=== PATIENT | male | born 1970 | race Caucasian/White ===

== ENCOUNTER 2022-12-11 13:42 | Inpatient (IN) | payer OTHER, SELFPAY ==
[2022-12-11 14:00] VITALS: BP 131/77; PULSE 72; RESP 17; TEMP 36; O2SAT 96; BMI 27.6
--- NOTE | 2022-12-11 14:06 | ED_ITS ---
HPI - General Adult General Chief complaint: Extremity Problem <COURTNEY Myles - Last Filed: 12/11/22 14:24> Stated complaint: both hands swelling <COURTNEY Myles - Last Filed: 12/11/22 14:24> Time Seen by Provider: 12/12/22 00:12 <COURTNEY Myles - Last Filed: 12/11/22 14:24> Source: patient <Ida Gross MD - Last Filed: 12/12/22 01:43> Mode of arrival: ambulatory <Ida Gross MD - Last Filed: 12/12/22 01:43> Limitations: no limitations <Ida Gross MD - Last Filed: 12/12/22 01:43> History of Present Illness HPI narrative: Patient comes to the emergency room complaining of bilateral hand swelling for the last 2 months. Patient states that his hands have gradually become more swollen and painful. Patient denies fever or chills. Patient is known to be an IV drug user. Of note, patient was seen at [facility] on 12/10/2022, 2 days ago. Patient was evaluated in the emergency room. Patient was evaluated by Hand surgery who recommended antibiotics IV. A CT scan of the hands did not show any evidence of osteomyelitis, but there was extensive skin thickening and subcutaneous edema without discrete abscess. Patient is followed by infectious disease at [facility], while patient was in the emergency room, they started cefepime, vancomycin and Flagyl IV. However, patient left the same day against medical advice. Patient states that even with 1 dose of the above- mentioned antibiotics, his hand did improve. However, there still pretty painful. MRI which was done at [facility] on December 10 shows no evidence of osteomyelitis or focal fluid collection, 3rd MCP joint effusion. Dorsal soft tissue swelling is most significant at the level of the 3rd MCP joint <Ida Gross MD - Last Filed: 12/12/22 01:43> Related Data Home medications: Home Medications Medication Instructions Recorded Confirmed methadone 10 mg tablet 90 mg PO DAILY 12/11/22 12/11/22 <COURTNEY Myles - Last Filed: 12/11/22 14:24> Allergies/adverse reactions: Allergies Allergy/AdvReac Type Severity Reaction Status Date / Time No Known Allergies Allergy Unverified 07/19/20 15:55 [No Known Allergies*] <COURTNEY Myles - Last Filed: 12/11/22 14:24> Review of Systems Review of Systems: Constitutional : No Weight loss, No Fever, No Chills, No Night Sweats, No Fatigue, No Malaise ENT/Mouth : No Hearing loss, No Ear Pain, No Nasal Congestion, No Sinus Pain, No Hoarseness, No sore throat, No Rhinorrhea, No Swallowing Difficulty Eyes: No Eye Pain, No Swelling, No Redness, No Foreign Body, No Discharge, No Vision Changes Cardiovascular : No Chest Pain, No SOB, No Dyspnea on Exertion, No Orthopnea, No Edema, No Palpitations Respiratory : No Cough, No Sputum, No Wheezing, No Smoke Exposure, No Dyspnea Gastrointestinal : No Nausea, No Vomiting, No Diarrhea, No Constipation, No abdominal Pain, No Hematochezia, No Melena Genitourinary : no irregular bleeding, No Dysuria, No Urinary Frequency, No Hematuria, No Urinary Incontinence, No Urgency, No Flank Pain, No Urinary Flow Changes, No Hesitancy Musculoskeletal : No joint pain, No Myalgias, No Joint Swelling Skin : Complaining of bilateral hand cellulitis, pain and swelling Neuro : No Weakness, No Numbness, No Paresthesias, No Loss of Consciousness, No Dizziness, No Headache Psych : No Anxiety/Panic, No Depression, No SI/HI/AH/VH, No Social Issues, Heme/Lymph: No Bruising, No Bleeding,No Lymphadenopathy Endocrine : No Polyuria, No Polydipsia, No Temperature Intolerance <Ida Gross MD - Last Filed: 12/12/22 01:43> [facility] Past Medical History Medical History: Medical History Hepatitis C IV drug user <COURTNEY Myles - Last Filed: 12/11/22 14:24> Social History Social History: Social History Advance Directives: No Advance Directives Information Provided: Yes <COURTNEY Myles - Last Filed: 12/11/22 14:24> Physical Exam ED Vital Signs: Vital Signs - 24 hr 12/11/22 14:00 12/11/22 18:02 Temperature 96.8 F 98.8 F Pulse Rate 72 67 Respiratory Rate 17 18 Blood Pressure 131/77 135/66 Pulse Oximetry 96 95 Oxygen Delivery Method Room Air Room Air BMI result Body Mass Index 27.6 <COURTNEY Myles - Last Filed: 12/11/22 14:24> Vital Signs - 24 hr 12/11/22 14:00 12/11/22 18:02 Temperature 96.8 F 98.8 F Pulse Rate 72 67 Respiratory Rate 17 18 Blood Pressure 131/77 135/66 Pulse Oximetry 96 95 Oxygen Delivery Method Room Air Room Air BMI result Body Mass Index 27.6 <Ida Gross MD - Last Filed: 12/12/22 01:43> Const Other: Appearance: Alert. Oriented X3. No acute distress. Eyes: Pupils equal, round and reactive to light. ENT: Pharynx normal. Neck: Normal inspection. Neck supple. No lymph nodes noted. No crepitus CVS: Normal heart rate and rhythm. Pulses normal. Normal S1 and S2 Respiratory: No respiratory distress. Breath sounds normal. No Wheezing. No rales Abdomen: Soft and nontender. No rigidity. No distention. Skin: Skin warm and dry. Normal skin color by the exceptions of the dorsum of the hands, see extremities below.. Normal skin turgor. Extremities: No lower extremity edema. Bilateral hands have significant +2 pitting edema. Tenderness to palpation, eschars on the dorsum of the hands, mild erythema Neuro: Oriented X 3. No motor deficit. No sensory deficit. Moving all extrem ities. No slurred speech. CN 2 through 12 grossly intact Psych: calm, cooperative, normal affect <Ida Gross MD - Last Filed: 12/12/22 01:43> Course Course Course Narrative: This is an RME: Additional HPI, ROS, PE not included below will be deferred to primary provider. 52 year old male hx hep c, presents w/ swelling to b/l arms and hands for a few days patient left AMA from [facility] last night was getting treated for hand issue . Last used IV drugs 32 days ago. Reports numbness to both hands. On methadone. Denies fevers, chills, CP, sob PE - 2-3 + pititng edema to b/l hands w/ normal pulses. Plan- labs, blood cultures, lactic <COURTNEY Myles - Last Filed: 12/11/22 14:24> Medical Decision Making Medical Decision Making MDM Narrative: -patient's hands are significantly swollen, patient does have edema. -patient was evaluated by Hand surgery at [facility], IV antibiotics were recommended. Patient responded well to the combination of cefepime, metronidazole and vancomycin. -I discussed the patient and the records from [facility] with Dr. Durham, we will continue this 3 antibiotics. Patient to be admitted. Hand surgery consult in the morning. <Ida Gross MD - Last Filed: 12/12/22 01:43> Differential Diagnosis Differential Diagnoses: The differential diagnosis associated with the presentation includes (Cellulitis, abscess, wound infection) <Ida Gross MD - Last Filed: 12/12/22 01:43> Admission/Observation Consideration of admission/observation: Escalation of care including admission/observation considered (Patient will be continued on IV antibiotics as recommended for hand surgery and Infectious Disease from [facility]) <Ida Gross MD - Last Filed: 12/12/22 01:43> Consult Healthcare Provider Management of the patient was discussed with: Hospitalist <Ida Gross MD - Last Filed: 12/12/22 01:43> Lab Data [facility] Lab Attestation statement: I reviewed the patient's lab results. <Ida Gross MD - Last Filed: 12/12/22 01:43> Result Diagrams: 12/12/22 00:34 12/12/22 00:34 <COURTNEY Myles - Last Filed: 12/11/22 14:24> Labs: Lab Results 12/12/22 12/12/22 12/12/22 Range/Units 00:28 00:34 00:34 WBC 8.8 (4.8-10.8) X10*3/uL RBC 5.30 (4.60-5.80) X10*6/uL Hgb 14.6 (14.0-18.0) g/dl Hct 44.0 (42.0-52.0) % MCV 83.0 (80.0-98.0) fL MCH 27.5 (27.0-33.0) pg MCHC 33.2 (31.0-36.0) g/dl RDW 13.3 (11.0-16.0) % Plt Count 298 (160-400) X10*3/uL MPV 10.2 (9.4-12.4) fL Immature Gran % (Auto) 0.3 (0.0-0.4) % Neut % (Auto) 52.9 (45-73) % Lymph % (Auto) 31.7 (20-40) % [place] % (Auto) 7.8 (2-11) % Eos % (Auto) 6.7 H (0-4) % Baso % (Auto) 0.6 (0-2) % Lymph # (Auto) 2.8 (1.2-4.9) X10*3/uL [place] # (Auto) 0.7 (0.1-1.2) X10*3/uL Eos # (Auto) 0.6 H (0.0-0.4) X10*3/uL Baso # (Auto) 0.1 (0.0-0.2) X10*3/uL Abs Immat Gran (auto) 0.03 (0.00-0.03) X10*3/uL Absolute Neuts (auto) 4.6 (2.0-8.3) x10*3/uL Absolute Nucleated RBC 0.000 (0.0-0.012) X10*3/uL Nucleated RBC % (auto) 0.0 (0.0-0.2) /100WBC ESR (0-15) MM/HR Sodium Cancelled Potassium Cancelled Chloride Cancelled Carbon Dioxide Cancelled Anion Gap Cancelled BUN Cancelled Creatinine Cancelled Estim Creat Clear Calc Cancelled Estimated GFR Cancelled Random Glucose Cancelled Lactic Acid (0.5-2.0) mmol/L Calcium Cancelled Magnesium Cancelled Total Bilirubin Cancelled AST Cancelled ALT Cancelled Alkaline Phosphatase Cancelled C-Reactive Protein (< or = 0.50) mg/dL B-Natriuretic Peptide (<100) pg/mL Total Protein Cancelled Albumin Cancelled COVID-19 (ÓSCAR) Negative (Negative) COVID-19 Clin Com See Note 12/12/22 12/12/22 12/12/22 Range/Units 00:34 00:34 00:34 WBC (4.8-10.8) X10*3/uL RBC (4.60-5.80) X10*6/uL Hgb (14.0-18.0) g/dl Hct (42.0-52.0) % MCV (80.0-98.0) fL MCH (27.0-33.0) pg MCHC (31.0-36.0) g/dl RDW (11.0-16.0) % Plt Count (160-400) X10*3/uL MPV (9.4-12.4) fL Immature Gran % (Auto) (0.0-0.4) % Neut % (Auto) (45-73) % Lymph % (Auto) (20-40) % [place] % (Auto) (2-11) % Eos % (Auto) (0-4) % Baso % (Auto) (0-2) % Lymph # (Auto) (1.2-4.9) X10*3/uL [place] # (Auto) (0.1-1.2) X10*3/uL Eos # (Auto) (0.0-0.4) X10*3/uL Baso # (Auto) (0.0-0.2) X10*3/uL Abs Immat Gran (auto) (0.00-0.03) X10*3/uL Absolute Neuts (auto) (2.0-8.3) x10*3/uL Absolute Nucleated RBC (0.0-0.012) X10*3/uL Nucleated RBC % (auto) (0.0-0.2) /100WBC ESR 4 (0-15) MM/HR Sodium Potassium Chloride Carbon Dioxide Anion Gap BUN Creatinine Estim Creat Clear Calc Estimated GFR Random Glucose Lactic Acid 1.0 (0.5-2.0) mmol/L Calcium Magnesium Total Bilirubin AST ALT Alkaline Phosphatase C-Reactive Protein (< or = 0.50) mg/dL B-Natriuretic Peptide 21 (<100) pg/mL Total Protein Albumin COVID-19 (ÓSCAR) (Negative) COVID-19 Clin Com 12/12/22 Range/Units 00:34 WBC (4.8-10.8) X10*3/uL RBC (4.60-5.80) X10*6/uL Hgb (14.0-18.0) g/dl Hct (42.0-52.0) % MCV (80.0-98.0) fL MCH (27.0-33.0) pg MCHC (31.0-36.0) g/dl RDW (11.0-16.0) % Plt Count (160-400) X10*3/uL MPV (9.4-12.4) fL Immature Gran % (Auto) (0.0-0.4) % Neut % (Auto) (45-73) % Lymph % (Auto) (20-40) % [place] % (Auto) (2-11) % Eos % (Auto) (0-4) % Baso % (Auto) (0-2) % Lymph # (Auto) (1.2-4.9) X10*3/uL [place] # (Auto) (0.1-1.2) X10*3/uL Eos # (Auto) (0.0-0.4) X10*3/uL Baso # (Auto) (0.0-0.2) X10*3/uL Abs Immat Gran (auto) (0.00-0.03) X10*3/uL Absolute Neuts (auto) (2.0-8.3) x10*3/uL Absolute Nucleated RBC (0.0-0.012) X10*3/uL Nucleated RBC % (auto) (0.0-0.2) /100WBC ESR (0-15) MM/HR Sodium 140 Potassium 4.3 Chloride 103 Carbon Dioxide 29 Anion Gap 12 BUN 13 Creatinine 0.89 Estim Creat Clear Calc 105.7 Estimated GFR > 60 Random Glucose 123 H Lactic Acid (0.5-2.0) mmol/L Calcium 9.7 Magnesium 2.1 Total Bilirubin 0.3 AST 70 H ALT 71 H Alkaline Phosphatase 88 C-Reactive Protein 0.66 H (< or = 0.50) mg/dL B-Natriuretic Peptide (<100) pg/mL Total Protein 7.5 Albumin 4.0 COVID-19 (ÓSCAR) (Negative) COVID-19 Clin Com <COURTNEY Myles - Last Filed: 12/11/22 14:24> Lab Results 12/12/22 12/12/22 12/12/22 Range/Units 00:28 00:34 00:34 WBC 8.8 (4.8-10.8) X10*3/uL RBC 5.30 (4.60-5.80) X10*6/uL Hgb 14.6 (14.0-18.0) g/dl Hct 44.0 (42.0-52.0) % MCV 83.0 (80.0-98.0) fL MCH 27.5 (27.0-33.0) pg MCHC 33.2 (31.0-36.0) g/dl RDW 13.3 (11.0-16.0) % Plt Count 298 (160-400) X10*3/uL MPV 10.2 (9.4-12.4) fL Immature Gran % (Auto) 0.3 (0.0-0.4) % Neut % (Auto) 52.9 (45-73) % Lymph % (Auto) 31.7 (20-40) % [place] % (Auto) 7.8 (2-11) % Eos % (Auto) 6.7 H (0-4) % Baso % (Auto) 0.6 (0-2) % Lymph # (Auto) 2.8 (1.2-4.9) X10*3/uL [place] # (Auto) 0.7 (0.1-1.2) X10*3/uL Eos # (Auto) 0.6 H (0.0-0.4) X10*3/uL Baso # (Auto) 0.1 (0.0-0.2) X10*3/uL Abs Immat Gran (auto) 0.03 (0.00-0.03) X10*3/uL Absolute Neuts (auto) 4.6 (2.0-8.3) x10*3/uL Absolute Nucleated RBC 0.000 (0.0-0.012) X10*3/uL Nucleated RBC % (auto) 0.0 (0.0-0.2) /100WBC ESR (0-15) MM/HR Sodium Cancelled Potassium Cancelled Chloride Cancelled Carbon Dioxide Cancelled Anion Gap Cancelled BUN Cancelled Creatinine Cancelled Estim Creat Clear Calc Cancelled Estimated GFR Cancelled Random Glucose Cancelled Lactic Acid (0.5-2.0) mmol/L Calcium Cancelled Magnesium Cancelled Total Bilirubin Cancelled AST Cancelled ALT Cancelled Alkaline Phosphatase Cancelled C-Reactive Protein (< or = 0.50) mg/dL B-Natriuretic Peptide (<100) pg/mL Total Protein Cancelled Albumin Cancelled COVID-19 (ÓSCAR) Negative (Negative) COVID-19 Clin Com See Note 12/12/22 12/12/22 12/12/22 Range/Units 00:34 00:34 00:34 WBC (4.8-10.8) X10*3/uL RBC (4.60-5.80) X10*6/uL Hgb (14.0-18.0) g/dl Hct (42.0-52.0) % MCV (80.0-98.0) fL MCH (27.0-33.0) pg MCHC (31.0-36.0) g/dl RDW (11.0-16.0) % Plt Count (160-400) X10*3/uL MPV (9.4-12.4) fL Immature Gran % (Auto) (0.0-0.4) % Neut % (Auto) (45-73) % Lymph % (Auto) (20-40) % [place] % (Auto) (2-11) % Eos % (Auto) (0-4) % Baso % (Auto) (0-2) % Lymph # (Auto) (1.2-4.9) X10*3/uL [place] # (Auto) (0.1-1.2) X10*3/uL Eos # (Auto) (0.0-0.4) X10*3/uL Baso # (Auto) (0.0-0.2) X10*3/uL Abs Immat Gran (auto) (0.00-0.03) X10*3/uL Absolute Neuts (auto) (2.0-8.3) x10*3/uL Absolute Nucleated RBC (0.0-0.012) X10*3/uL Nucleated RBC % (auto) (0.0-0.2) /100WBC ESR 4 (0-15) MM/HR Sodium Potassium Chloride Carbon Dioxide Anion Gap BUN Creatinine Estim Creat Clear Calc Estimated GFR Random Glucose Lactic Acid 1.0 (0.5-2.0) mmol/L Calcium Magnesium Total Bilirubin AST ALT Alkaline Phosphatase C-Reactive Protein (< or = 0.50) mg/dL B-Natriuretic Peptide 21 (<100) pg/mL Total Protein Albumin COVID-19 (ÓSCAR) (Negative) COVID-19 Clin Com 12/12/22 Range/Units 00:34 WBC (4.8-10.8) X10*3/uL RBC (4.60-5.80) X10*6/uL Hgb (14.0-18.0) g/dl Hct (42.0-52.0) % MCV (80.0-98.0) fL MCH (27.0-33.0) pg MCHC (31.0-36.0) g/dl RDW (11.0-16.0) % Plt Count (160-400) X10*3/uL MPV (9.4-12.4) fL Immature Gran % (Auto) (0.0-0.4) % Neut % (Auto) (45-73) % Lymph % (Auto) (20-40) % [place] % (Auto) (2-11) % Eos % (Auto) (0-4) % Baso % (Auto) (0-2) % Lymph # (Auto) (1.2-4.9) X10*3/uL [place] # (Auto) (0.1-1.2) X10*3/uL Eos # (Auto) (0.0-0.4) X10*3/uL Baso # (Auto) (0.0-0.2) X10*3/uL Abs Immat Gran (auto) (0.00-0.03) X10*3/uL Absolute Neuts (auto) (2.0-8.3) x10*3/uL Absolute Nucleated RBC (0.0-0.012) X10*3/uL Nucleated RBC % (auto) (0.0-0.2) /100WBC ESR (0-15) MM/HR Sodium 140 Potassium 4.3 Chloride 103 Carbon Dioxide 29 Anion Gap 12 BUN 13 Creatinine 0.89 Estim Creat Clear Calc 105.7 Estimated GFR > 60 Random Glucose 123 H Lactic Acid (0.5-2.0) mmol/L Calcium 9.7 Magnesium 2.1 Total Bilirubin 0.3 AST 70 H ALT 71 H Alkaline Phosphatase 88 C-Reactive Protein 0.66 H (< or = 0.50) mg/dL B-Natriuretic Peptide (<100) pg/mL Total Protein 7.5 Albumin 4.0 COVID-19 (ÓSCAR) (Negative) COVID-19 Clin Com <Ida Gross MD - Last Filed: 12/12/22 01:43> Critical Care Time Critical Care Time Critical Care Time: Yes <Ida Gross MD - Last Filed: 12/12/22 01:43> Total Critical Care Time: 45 <Ida Gross MD - Last Filed: 12/12/22 01:43> Attestation: I have personally provided critical care time. Time includes review of lab data, radiology results, discussion with consultants, and monitoring for potential decompensation. Intervention performed as documented. <Ida Gross MD - Last Filed: 12/12/22 01:43> Discharge Plan Discharge Clinical Impression: Bilateral hand swelling, Cellulitis of hand <COURTNEY Myles - Last Filed: 12/11/22 14:24> Patient Disposition: Admitted As Inpatient <COURTNEY Myles - Last Filed: 12/11/22 14:24> Prescriptions: No Action methadone 10 mg Tablet 90 mg PO DAILY <COURTNEY Myles - Last Filed: 12/11/22 14:24>
--- OUTSIDE RECORDS SUMMARY | 2022-12-11 17:11 | XMS_ITS | Continuity of Care Document ---
:1970 Author Organization [facility] Address [address] [place] [address]- Care Team Providers Name Role Phone Not on Staff, PCP Primary Care Physician Unavailable [place] [facility] [place] 09/06/[address] [id number] Encounter Diagnosis Rash (Final) - 09/03/20 Discharge Disposition: A-D/C Home Attending Physician: Elisa Noland DO Admitting Physician: Carlos Alberto Prieto MD Referring Physician: Not on Staff, Referring MD Allergies, Adverse Reactions, Alerts Substance Reaction Severity Status NKA Active Immunizations Not Given Vaccine Date Status Refusal Reason pneumococcal 23-valent vaccine 05/24/15 Not Given P atient Refuses pneumococcal 23-valent vaccine 05/22/15 Not Given P atient Refuses Medications apixaban Starter Pack 5 mg oral tablet 2 tablet = 10 mg, By Mouth, 2 times a day, followed by 1 tablet by mouth twice daily for 23 days, # 74 tablet, 0 Refills, Maintenance, 09/05/20 11:09:00 EST, [facility], 180, cm, :05:00 EST, Height, 95.8, kg, 09/04/20 12:47:00... Start Date: 09/05/20 Stop Date: 09/12/20 Status: OrderedAugmentin 875 mg-125 mg oral tablet 1 tablet, By Mouth, Every 12 hours, for 16 days, # 32 tablet, 0 Refills, Acute 09/22/20 9:42:00 EST,09/06/20 9:42:00 EST, Tablet, [facility], 180, cm, 09/06/20 3:41:00 EST, Height, 95.8,kg, 09/04/20 12:47:00 EST, Dry Weight Start Date: 09/06/20 Stop Date: 09/22/20 Status: Ordereddoxycycline hyclate 100 mg oral capsule 1 capsule = 100 mg, By Mouth, 2 times a day, for 16 days, # 32 capsule, 0 Refills, Acute 09/22/20 9:42:00 EST, 09/06/20 9:42:00 EST, Capsule, [facility] 3, 180, cm, 09/06/20 3:41:00 EST, Height, 95.8, kg, 09/04/20 12:47:00 EST, Dry Weight Start Date: 09/06/20 Stop Date: 09/22/20 Status: Orderedmethadone 10 mg oral tablet 8.6 tablet = 86 mg, By Mouth, Daily, 0 Refills, Maintenance, 09/04/20 3:05:00 EST, Tablet, Partial fill upon patient request Start Date: 09/04/20 Status: Ordered Results Orders for Microbiology Reports Name Date Blood Culture 09/03/20 Blood Culture #2 09/03/20 Microbiology Reports TEST:Blood Culture STATUS:Unauthenticated BODY SITE: SOURCE:Blood COLLECTED DATE/TIME:09/03/20 10:05 PMBlood Culture SPECIMEN DESCRIPTION : BLOOD RIGHT ARM SPECIAL REQUESTS : NONE CULTURE : NO GROWTH 3 DAYS REPORT STATUS : PRELIMINARY REPORT TEST:Blood Culture, Second Order STATUS:Unauthenticated BODY SITE: SOURCE:Blood COLLECTED DATE/TIME:09/03/20 10:05 PMBlood Culture, Second Order SPECIMEN DESCRIPTION : BLOOD LEFT FINGER SPECIAL REQUESTS : NONE CULTURE : NO GROWTH 3 DAYS REPORT STATUS : PRELIMINARY REPORT Radiology Reports Exam Date Time Procedure Performing Provider Status 09/03/20 10:29 PM Humerus Min 2 Views Left Fuentes Tsai; Auth ( Verified) Notes:(Humerus Min 2 Views Left) Reason For Exam: cellulitis;Other:RESULT: Humerus Min 2 Views Left Humerus Min 2 Views Left Hx of Present Illness: Intravenous drug use. Swelling of the arm. Assess for abscess. COMPARISON: None. FINDINGS: No fractures or bone lesions. The visualized portions of the joints are normal. Soft tissue swelling along anterior aspect of the biceps musculature distally and in the antecubitalfossa. No soft tissue gas identified. IMPRESSION: Appearance suggestive of cellulitis in the mid aspect of the left upper extremity. No soft tissue gas identified. WSN: [id number] Ordering Physician: Kevin Price Dictated By: Guillermo Shepherd DO Dictated Date/Time: 09/03/20 10:49 p Reviewed By: Guillermo Shepherd DO Signed By: Guillermo Shepherd DO Signed Date/Time: 09/03/20 10:49 pm Transcribed By: TITO Transcribed Date/Time: 09/03/20 10:47 pm Vital Signs Most recent to oldest 1 2 3 [Reference Range]: Height 180 cm 180 cm 180 cm (09/06/20 3:41 AM) (09/05/20 11:33 PM) (09/05/20 7: 36 PM) Weight 95.8 kg 96.9 kg 96.9 kg (09/04/20 12:46 PM) (09/04/20 11:49 AM) (09/03/20 7 :43 PM) Oxygen Saturation [94-100 %] 99 % 96 % 97 % (09/06/20 7:00 AM) (09/06/20 3:41 AM) (09/05/20 11: 33 PM) Pulse Rate [55-90 bpm] 49 bpm 1 50 bpm 66 bpm *L* *L* (09/05/20 11:33 P M) (09/06/20 7:00 AM) (09/06/20 3:41 AM) Body Mass Index [18.5-24.99] 29.57 29.91 *H* *H* (09/04/20 12:46 PM) (09/03/20 5:38 PM) Blood Pressure [90-138/55-84 122/62 mm Hg 134/60 mm Hg 128 /60 mm Hg mm Hg] (09/06/20 7:00 AM) (09/06/20 3:41 AM) (09/05/20 11: 33 PM) Respiratory Rate [16-30 18 br/min 18 br/min 16 br/mi n br/min] (09/06/20 9:30 AM) (09/06/20 7:32 AM) (09/06/20 7:0 0 AM) Temperature [96.8-100.4 98.3 DegF 98.2 DegF 98.1 Deg F DegF] (09/06/20 7:00 AM) (09/06/20 3:41 AM) (09/05/20 11: 33 PM) Mode of Delivery (Oxygen) Room air Room air Room a ir (09/06/20 3:41 AM) (09/05/20 11:33 PM) (09/05/20 7: 36 PM) Blood pressure sites Leg, right Arm, right Leg, right (09/06/20 7:00 AM) (09/06/20 3:41 AM) (09/05/20 11: 33 PM) Temperature Route Oral Oral Oral (09/06/20 7:00 AM) (09/06/20 3:41 AM) (09/05/20 11: 33 PM) Dry Weight 95.8 kg 96.9 kg 96.9 kg (09/04/20 12:46 PM) (09/03/20 7:43 PM) (09/03/20 5: 38 PM) Weight Obtained Via Bed scale Standing scale (09/04/20 11:49 AM) (09/03/20 5:38 PM) Dry Weight Obtained Via Standing scale (09/03/20 5:38 PM) 1Result Comment: rn notified Social History Social History Type Response Smoking Status Current every day smoker entered on: 05/21/15 Sex
--- OUTSIDE RECORDS SUMMARY | 2022-12-11 17:11 | XMS_ITS | Continuity of Care Document ---
:1970 Author Organization [facility] Address [address] [place] [address]- Care Team Providers Name Role Phone Not on Staff, PCP Primary Care Physician Unavailable Encounter [facility] Date(s): 10/25/22 - 10/29/22 [facility] [address] [place] [id number] Encounter Diagnosis Cellulitis of left upper limb (Final) - 10/25/22 Opioid abuse, uncomplicated (Final) - 10/26/22 Methicillin resistant Staphylococcus aureus infection, unspecified site (Final) - 10/26/22 Discharge Disposition: A-D/C Home Attending Physician: Elisa Noland DO Admitting Physician: Montana Newman MD Referring Physician: Not on Staff, Referring MD Allergies, Adverse Reactions, Alerts No Known Allergies Immunizations Given and Recorded Vaccine Date Status Refusal Reason influenza virus vaccine, inactivated1 10/27/22 Given SARS-CoV-2 (COVID-19) mRNA-1273 vaccine 10/30/21 Recorded SARS-CoV-2 (COVID-19) Ad26 vaccine 06/05/21 Recorded Not Given Vaccine Date Status Refusal Reason pneumococcal 23-valent vaccine 05/24/15 Not Given P atient Refuses pneumococcal 23-valent vaccine 05/22/15 Not Given P atient Refuses 1Early/Late Reason: Early/Late Reason: Patient Refused Medications Augmentin 875 mg-125 mg oral tablet 1 tablet, By Mouth, Every 12 hours, for 21 days, # 42 tablet, 0 Refills, Acute 11/19/22 11:37:00 EST, 10/29/22 11:37:00 EST, Tablet, [facility], Partial fill upon patient request if the prescription is for a schedule II opioid drug. Start Date: 10/29/22 Stop Date: 11/19/22 Status: OrderedBactrim DS 800 mg-160 mg oral tablet 1 tablet, By Mouth, Every 12 hours, for 21 days, # 42 tablet, 0 Refills, Acute 11/19/22 11:37:00 EST, 10/29/22 11:37:00 EST, Tablet, [facility], Partial fill upon patient request if the prescription is for a schedule II opioid drug., 1 t... Start Date: 10/29/22 Stop Date: 11/19/22 Status: Orderedmethadone 10 mg/5 mL oral solution 50 mL = 100 mg, By Mouth, Daily, 0 Refills, Maintenance, 10/29/22 11:32:00 EST, Solution, Partial fill upon patient request if the prescription is for a schedule II opioid drug. Start Date: 10/29/22 Status: OrderedMethadone Liquid 100 mg, Solution, By Mouth, 10/29/22 9:00:00 EST Start Date: 10/29/22 Stop Date: 10/29/22 Status: Completed Results Orders for Microbiology Reports Name Date Blood Culture 10/25/22 Blood Culture 10/25/22 Blood Culture #2 10/25/22 Microbiology Reports TEST:Blood Culture STATUS:Unauthenticated BODY SITE: SOURCE:Blood COLLECTED DATE/TIME:10/25/22 2:21 PMBlood Culture SPECIMEN DESCRIPTION : BLOOD R ARM SPECIAL REQUESTS : NONE CULTURE : NO GROWTH 3 DAYS REPORT STATUS : PRELIMINARY REPORT TEST:Blood Culture STATUS:Unauthenticated BODY SITE: SOURCE:Blood COLLECTED DATE/TIME:10/25/22 10:41 AMBlood Culture SPECIMEN DESCRIPTION : BLOOD L AC SPECIAL REQUESTS : NONE CULTURE : NO GROWTH 3 DAYS REPORT STATUS : PRELIMINARY REPORT TEST:Blood Culture, Second Order STATUS:Unauthenticated BODY SITE: SOURCE:Blood COLLECTED DATE/TIME:10/25/22 10:41 AMBlood Culture, Second Order SPECIMEN DESCRIPTION : BLOOD L ARM SPECIAL REQUESTS : NONE CULTURE : NO GROWTH 3 DAYS REPORT STATUS : PRELIMINARY REPORT Radiology Reports Exam Date Time Procedure Performing Provider Status 10/26/22 11:[address] Ext Upper W/ Contrast Pattie Edge ; Auth (Verified) Left Notes:(CT Ext Upper W/ Contrast Left) Reason For Exam: InfectionRESULT: CT Ext Upper W/ Contrast Left CT Ext Upper W/ Contrast Left Reason: Infection; Clinical Question(s): Hand; Order Comment: TECHNIQUE: Helical CT of the left hand was performed after the intravenous injection of 100 cc of Omnipaque 300, administered along with contrast performed right upper extremity CT. Images were formatted in 3 planes. Weight-based protocol using automatic tube modulation was used to optimize exposure pa rameters. CTDIvol Body: 8.00 mGy, DLP Body: 249 mGy*cm. COMPARISONS: None FINDINGS: Bones and joints: No fracture or dislocation is present. No erosions, productive changes or abnormalcalcifications are noted. Soft Tissues: Extensive dorsal subcutaneous edema is seen in the hand with mild dorsal and lateral subcutaneous edema extending into the wrist. No rim-enhancing fluid collection is seen. No subcutaneous gas. There is a shallow contour defect in the dorsal soft tissues superficial to the interspace between the fourth and fifth metacarpals which may reflect ulceration. IMPRESSION: Subcutaneous edema, which is nonspecific and can be seen with cellulitis. No evidence of rim-enhancing fluid collection. Shallow contour defect along the dorsum of the hand on its medial aspect, which may reflect ulceration. No CT evidence of osteomyelitis. WSN: [id number] Ordering Physician: Yousif Cruz Dictated By: Tanja Demarco MD Dictated Date/Time: 10/27/22 6:00 pm Reviewed By: Tanja Demarco MD Signed By: Tanja Demarco MD Signed Date/Time: 10/27/22 6:00 pm Transcribed By: TITO Transcribed Date/Time: 10/27/22 5:55 pm Exam Date Time Procedure Performing Provider Status 10/26/22 11:[address] Ext Upper W/ Contrast Pattie Edge ; Auth (Verified) Right Notes:(CT Ext Upper W/ Contrast Right) Reason For Exam: InfectionRESULT: CT Ext Upper W/ Contrast Right CT Ext Upper W/ Contrast Right Reason: Infection; Clinical Question(s): Hand TECHNIQUE: Helical CT of the right hand was performed after the intravenous injection of 100 cc of Omnipaque 300 as administered with concurrent left upper extremity CT, with images formatted in 3 planes. Weight-based protocol using automatic tube modulation was used to optimize exposure parameters. COMPARISONS: Right upper extremity CT dated 05/20/2015. FINDINGS: Bones and joints: No fracture or dislocation is present. No erosions, productive changes or abnormalcalcifications are noted. Soft Tissues: There is subcutaneous edema on the dorsum of the hand. There are focal areas of attenuation of the dorsal soft tissues of the hand extending to the wrist which may reflect postoperative change/scarring. Subcutaneous edema is also seen along the anterolateral aspect of the wrist and extending into the base of the thumb. There is a small amount of rim-enhancing hypodensity along the superficial aspect of the extensor pollicis brevis tendon at the level of the radiocarpal joint (image 37 of series 2011). The remainder of the tendons appear unremarkable for the CT technique. IMPRESSION: Small amount of rim-enhancing hypodensity along the superficial aspect of the extensor pollicis brevis tendon at the level of the radiocarpal joint, concerning for tenosynovitis. No CT evidence of osteomyelitis. Subcutaneous edema, which is nonspecific and in the appropriate setting can be seen with cellulitis. WSN: [id number] Ordering Physician: Yousif Cruz Dictated By: Tanja Demarco MD Dictated Date/Time: 10/27/22 5:55 pm Reviewed By: Tanja Demarco MD Signed By: Tanja Demarco MD Signed Date/Time: 10/27/22 5:55 pm Transcribed By: TITO Transcribed Date/Time: 10/27/22 5:36 pm Exam Date Time Procedure Performing Provider Status 10/25/22 11:27 AM Forearm 2 Views Right Melvi Estes; Marcello (Verified) Notes:(Forearm 2 Views Right) Reason For Exam: PainRESULT: Forearm 2 Views Right Forearm 2 Views Right Hx of Present Illness: reports abscesses on hands, no fevers, reports injecting 30 bags qd has cut down to 8 bags and wants help to stop, no chest, abd symptoms, + ROGEL, has been taking ? Abx; Reason: Pain; Clinical Question(s): Osteomyelitis; Foreign body COMPARISON: Right wrist 05/31/2015. FINDINGS: No fractures or bone lesions. The visualized joint spaces are normal. Soft tissue edema noted in the form, particularly on the ulnar side. No radiopaque foreign object ordefinite soft tissue gas. IMPRESSION: Soft tissue edema noted in the form, particularly on the ulnar side. No radiopaque foreign object ordefinite soft tissue gas. No acute bone or joint abnormality. WSN: [id number] Ordering Physician: Kayla Shaver Dictated By: Angie Levin MD, I Dictated Date/Time: 10/25/22 2:34 pm Reviewed By: Angie Levin MD, I Signed By: Angie Levin MD, I Signed Date/Time: 10/25/22 2:34 pm Transcribed By: TITO Transcribed Date/Time: 10/25/22 2:31 pm Exam Date Time Procedure Performing Provider Status 10/25/22 11:27 AM Hand Min 3 Views Right Mlevi Estes; Auth (Verified) Notes:(Hand Min 3 Views Right) Reason For Exam: PainRESULT: Hand Min 3 Views Right Hand Min 3 Views Right, 3 views Hx of Present Illness: reports abscesses on hands, no fevers, reports injecting 30 bags qd has cut down to 8 bags and wants help to stop, no chest, abd symptoms, + ROGEL, has been taking ? Abx; Reason: Pain; Clinical Question(s): Osteomyelitis; Foreign body COMPARISON: Left hand radiographs of the same date. FINDINGS: No fractures or bone lesions. Bone mineralization is normal. No osseous erosion or periosteal reaction. No arthritic changes. Soft tissue swelling in the proximal portion of each hand. No subcutaneous emphysema. No foreign body. IMPRESSION: No osseous or joint space abnormality. Soft tissue swelling without subcutaneous emphysema WSN: [id number] Ordering Physician: Kayla Shaver Dictated By: Rene Sykes MD Dictated Date/Time: 10/25/22 12:01 p Reviewed By: Rene Sykes MD Signed By: Rene Sykes MD Signed Date/Time: 10/25/22 12:01 pm Transcribed By: TITO Transcribed Date/Time: 10/25/22 11:59 am Exam Date Time Procedure Performing Provider Status 10/25/22 10:58 AM Chest Portable Ana Vail; Auth (Verified ) Notes:(Chest Portable) Reason For Exam: Shortness of BreathRESULT: Chest Portable Chest Portable at 10:50 AM Hx of Present Illness: reports abscesses on hands, no fevers, reports injecting 30 bags qd has cut down to 8 bags and wants help to stop, no chest, abd symptoms, + ROGEL, has been taking ? Abx; Reason: Shortness of Breath; Clinical Question(s): CHF COMPARISON: 3:54 AM on the same date. FINDINGS: LINES AND TUBES: None. LUNGS AND PLEURA: Linear atelectasis in the periphery of the left lung base. Lungs are otherwise clear with normal vascularity. No pleural effusion. No pneumothorax. HEART, MEDIASTINUM AND MARSHALL: Heart is normal in size. Normal mediastinal and hilar contour. BONES AND SOFT TISSUES: No acute abnormality. IMPRESSION: Mild linear atelectasis in the left lung base. No other acute abnormality. WSN: [id number] Ordering Physician: Kayla Shaver Dictated By: Rene Sykes MD Dictated Date/Time: 10/25/22 11:59 a Reviewed By: Rene Sykes MD Signed By: Rene Sykes MD Signed Date/Time: 10/25/22 11:59 am Transcribed By: TITO Transcribed Date/Time: 10/25/22 11:58 am Exam Date Time Procedure Performing Provider Status 10/25/22 11:27 AM Forearm 2 Views Left Melvi Estes; Auth ( Verified) Notes:(Forearm 2 Views Left) Reason For Exam: PainRESULT: Forearm 2 Views Left Forearm 2 Views Left Hx of Present Illness: reports abscesses on hands, no fevers, reports injecting 30 bags qd has cut down to 8 bags and wants help to stop, no chest, abd symptoms, + ROGEL, has been taking ? Abx; Reason: Pain; Clinical Question(s): Osteomyelitis; Foreign body COMPARISON: Right forearm radiographs of the same date. FINDINGS: No fractures or bone lesions. Bone mineralization is normal. No osseous erosion or periosteal reaction. The visualized joint spaces are normal. There is soft tissue swelling along the proximal portion of the hand, especially dorsally. IMPRESSION: No osseous or joint space abnormality. Soft tissue swelling in the hand, especially dorsally. WSN: [id number] Ordering Physician: Kayla Shaver Dictated By: Rene Sykes MD Dictated Date/Time: 10/25/22 11:58 a Reviewed By: Rene Sykes MD Signed By: Rene Sykes MD Signed Date/Time: 10/25/22 11:58 am Transcribed By: TITO Transcribed Date/Time: 10/25/22 11:56 am Exam Date Time Procedure Performing Provider Status 10/25/22 11:27 AM Hand Min 3 Views Left Melvi Estes; Auth (Verified) Notes:(Hand Min 3 Views Left) Reason For Exam: PainRESULT: Hand Min 3 Views Left Hand Min 3 Views Left, 3 views Hx of Present Illness: reports abscesses on hands, no fevers, reports injecting 30 bags qd has cut down to 8 bags and wants help to stop, no chest, abd symptoms, + ROGEL, has been taking ? Abx; Reason: Pain; Clinical Question(s): Osteomyelitis; foreign body COMPARISON: None. FINDINGS: No fractures or bone lesions. No arthritic changes. There is soft tissue swelling. IMPRESSION: There is soft tissue swelling. WSN: [id number] Ordering Physician: Kayla Shaver Dictated By: Bhumika Garcia MD Dictated Date/Time: 10/25/22 11:52 a Reviewed By: Bhumika Garcia MD Signed By: Bhumika Garcia MD Signed Date/Time: 10/25/22 11:52 am Transcribed By: TITO Transcribed Date/Time: 10/25/22 11:51 am Exam Date Time Procedure Performing Provider Status 10/25/22 3:57 AM Chest 2 Views Frontal and Lat Briseida Gomez; Marcello (Verified) Notes:(Chest 2 Views Frontal and Lat) Reason For Exam: Shortness of Breath RESULT: Chest 2 Views Frontal and Lat Chest 2 Views Frontal and Lat Hx of Present Illness: reports abscesses on hands, no fevers, reports injecting 30 bags qd has cut down to 8 bags and wants help to stop, no chest, abd symptoms, + ROGEL, has been taking ? Abx; Reason: Shortness of Breath; Clinical Question(s): Pneumonia; Special Instructions: This is a protocol film and radiologist should call any findings to the Charge Nurse COMPARISON: None. FINDINGS: LINES AND TUBES: None. LUNGS AND PLEURA: Clear lungs. Normal pulmonary vascularity. No pleural effusion. No pneumothorax. HEART, MEDIASTINUM AND MARSHALL: Heart is normal in size. Normal mediastinal and hilar contour. BONES AND SOFT TISSUES: The bones are demineralized. Multilevel thoracic spine moderate vertebral body compression fracture deformities. IMPRESSION: There is no evidence of acute cardiopulmonary pathology. The bones are demineralized. Multilevel thoracic spine moderate vertebral body compression fracture deformities. WSN: [id number] Ordering Physician: Tej Moss Dictated By: Bhumika Garcia MD Dictated Date/Time: 10/25/22 4:20 am Reviewed By: Bhumika Garcia MD Signed By: Bhumika Garcia MD Signed Date/Time: 10/25/22 4:20 am Transcribed By: TITO Transcribed Date/Time: 10/25/22 4:18 am Vital Signs Most recent to oldest 1 2 3 [Reference Range]: Weight 94 kg 94 kg 94 kg (10/25/22 12:24 PM) (10/25/22 10:34 AM) ( 2 9:43 AM) Oxygen Saturation [94-100 100 % 97 % 93 % %] (10/29/22 6:02 AM) (10/28/22 7:00 PM) *L* (10/28/22 3:00 P M) Pulse Rate [55-90 bpm] 68 bpm 62 bpm 80 bpm (10/29/22 6:02 AM) (10/28/22 7:00 PM) (10/28/22 3:00 PM) Blood Pressure 125/74 mm Hg 135/85 mm Hg 121/76 mm Hg [90-138/55-84 mm Hg] (10/29/22 6:02 AM) (10/28/22 7:00 PM) (10/03 05/23 3:00 PM) Respiratory Rate [16-30 16 br/min 19 br/min 18 br/mi n br/min] (10/29/22 8:58 AM) (10/29/22 7:58 AM) (10/29/22 6:02 AM) Temperature [96.8-100.4 98.4 DegF 98.5 DegF 98.8 Deg F DegF] (10/29/22 6:02 AM) (10/28/22 7:00 PM) (10/28/22 3:00 PM) Mode of Delivery (Oxygen) Room air Room air Room a ir (10/29/22 6:02 AM) (10/28/22 7:00 PM) (10/28/22 3:00 PM) Blood pressure sites Arm, right Arm, right Arm, right (10/29/22 6:02 AM) (10/28/22 7:00 PM) (10/28/22 3:00 PM) Temperature Route Oral Oral Oral (10/29/22 6:02 AM) (10/28/22 7:00 PM) (10/28/22 3:00 PM) Weight Obtained Via Patient/family stated (10/25/22 2:23 AM) Social History Social History Type Response Smoking Status Current every day smoker entered on: 05/21/15 Sex Admission evaluation note Yajaira Kothari MD: MODIFY, PERFORM Event Display: Admission Note Authored Date: [id number] Patient: ??VICTORINO MAIER ? Age:??52 Years?Sex:??Male?:??1970?? Chief Complaint/Reason for Consultation Cellulitis 50 m p/w h/o IVDU, and osteo,?no abscess pocket?? started on vanco History of Present Illness ??52-year-old male patient with a past medical history of polysubstance abuse(daily injection use),history of untreated hepatitis C, history of prior right forearm abscess with osteomyelitis s/p debridement who who presented to the ER for further evaluation of swelling of both hands. ??He reports that he injects on a daily basis, most recent injection was yesterday morning, he injected into the dorsum of both hands. ??He endorsed using clean needles and does not share needles. ??But he does not clean the skin before injection. ??He also denied fever, chills, nausea/vomiting, abdominal pain, shortness of breath or chest pain. ??He reported that he was clean previously however he relapsed after his son committed suicide last year. ??He is in methadone 90 mg and he was able to cut from 3 packs to 6 bags/day. ??Upon presentation to ER,?? the patient was hemodynamically stable with blood pressure of 130/72, maintaining oxygen saturation at 96% on room air, afebrile. ??Chest x-ray was obtained without evidence of acute cardiopulmonary abnormalities.?Hand x-ray was obtained and showed soft tissue swelling??without evidence of osteomyelitis. ??Initial blood work-up was remarkable for elevated AST/ALT of 49/46, elevated sed rate at 28 and normal CRP. ?? Review of Systems Constitutional:?No weight loss, fever, chills, weakness or fatigue. Cardiovascular:No chest pain,pressure or discomfort. No palpitations or pedal edema. Respiratory:No shortness of breath, cough or sputum production. Gastrointestinal:?No anorexia, nausea, vomiting or diarrhea. No abdominal pain or blood in stool. Genitourinary: No burning micturition. No urinary frequency or incontinence. Neurologic: No headache, dizziness, syncope, unilateral weakness, ataxia, numbness or tingling in the extremities. No change in bowel or bladder control. Musculoskeletal: No muscle pain, back pain, joint pain or stiffness. Hematologic: No bleeding or bruising. Lymphatics: No enlarged lymph nodes. Psychiatric: No depression or anxiety. Endocrine: No reports of sweating. No cold or heat intolerance. No polyuria or polydipsia. All other systems were reviewed and are negative. Objective Measurements?? Weight: 94 kg (10/25/22) ?? Vital Signs?? Temperature: 98.2 DegF (10/25/22 12:24:00) Temperature Route: Oral (10/25/22 12:24:00) Pulse Rate: 66 bpm (10/25/22 12:24:00) Respiratory Rate:??8 br/min??Low (10/25/22 12:24:00) Systolic Blood Pressure: 118 mm Hg (10/25/22 12:24:00) Diastolic Blood Pressure: 77 mm Hg (10/25/22 12:24:00) Blood pressure sites: Arm, left (10/25/22 12:24:00) Mean Arterial Pressure: 91 mm Hg (10/25/22 12:24:00) Pulse Pressure: 41 mm Hg (10/25/22 12:24:00) Oxygen Saturation: 97 % (10/25/22 12:24:00) Mode of Delivery (Oxygen): Room air (10/25/22 12:24:00) ? Intake/Output? No Data Available ? Physical Exam ?? Constitutional: Alert, in no acute distress. ?? Head: Normocephalic. ?? Eyes: Pupils are equal, round and reactive to light. Extraocular muscles intact. No pallor or scleral icterus ?? Ear, Nose and Throat: mucous membranes moist. Ears and nose - no obvious deformities. Trachea midline. ?? Neck: Supple, Full range of motion.No JVD or bruits. ?? Respiratory:??Clear to auscultation. No wheezing or rhonchi.??No use of accessory muscles. No tactile fremitus.? Cardiovascular:??PMI not visible. S1 S2 regular. No murmurs, rubs or gallops. ?? Gastrointestinal:??Abdomen soft, non-tender, non-distended. Normal bowel sounds. No pulsatile mass.No hepatosplenomegaly. ?? Genitourinary:??No costovertebral angle tenderness. ?? Extremities: bilateral swelling of the lateral surface of both hands??without redness or surrounding erythema. ?? Neurologic:??AAOx3, Cranial nerves II-XII grossly intact. Speech normal, no facial droop. No focal neurological deficits. Moves all extremities spontaneously. Sensation intact bilaterally.??Flexor plantar response ?? Skin:??No rash.? Musculoskeletal:??No gross deformities on inspection. Normal range of motion in hips, knees, ankles. Gait? _ ?.??Muscle strength within normal limits ?? Heme/Lymphatics:??Palpation of neck reveals no swelling or tenderness of neck nodes.? Psychiatric: Normal mood and affect. ?? Assessment/Plan 52-year-old male patient with a past medical history of polysubstance abuse(daily injection use), history of untreated hepatitis C, history of prior right forearm abscess with osteomyelitis s/p debridement who who presented to the ER for further evaluation of swelling of both hands. ?? Cellulitis Concerning for osteomyelitis hx Left Cephalic Vein Thrombus/Superficial Thrombophlebitis Patient reported??daily injection, most recent was yesterday. Presents??with??bilateral swelling of the dorsal surface of both hands. History of left cephalic vein thrombus/superficial thrombi this was supposed to be on apixaban, which was negative. As needed pain medication No leukocytosis, normal CRP and elevated sed rate. Continue vancomycin given history of??prior osteomyelitis Infectious disease consultation ? History of Polysubstance Abuse Extensive counseling was provided to the patient He admits that he cut down from 3 packs to 6 packs a day. He reports that he is on methadone 90 mg. Will initiate methadone 30 mg??daily??till we verify the dose??in the a.m. Low threshold to start CIWA protocol??given??history of alcohol use Addiction consult Social work consult ? Transaminitis untreated hepatitis C AST and ALT mildly elevated f/u as outpatient ? Quality measures CODE STATUS:??full??resuscitation Diet-:??Regular DVT prophylaxis-: Lovenox ?? Histories Allergies Allergies ?(Active and Proposed Allergies Only) NKA? (Severity: Unknown severity, Onset: Unknown) ? Past Medical History/Problem List Active Problems??(2) Bacteremia Hand osteomyelitis, right ? Past Surgical History No surgery history documented. ? Social History Alcohol Details:??Use: Current. ??Frequency: 1-2 times per month. Tobacco Details:??Current every day smoker ? Family History No family history recorded. ? Medications Home Medications apixaban (apixaban Starter Pack 5 mg oral tablet)?2?tab(s)?10?Milligram?By Mouth?2 times a day?for 7?Days?followed by 1 tablet by mouth twice daily for 23 days Methadone (methadone 10 mg oral tablet)?8.6?tab(s)?86?Milligram?By Mouth?Daily ? Results Recent Labs BLOOD COUNT & DIFF WBC 8.6 k/mm3 ()?? 10/25/2022 03:43 RBC 5.56 m/mm3 ()?? 10/25/2022 03:43 Hgb 14.8 Gm/dL ()?? 10/25/2022 03:43 Hct 47.4 % ()?? 10/25/2022 03:43 MCV 85.3 femtoliters ()?? 10/25/2022 03:43 MCH 26.6 pg (Low)?? 10/25/2022 03:43 MCHC 31.2 g/dL (Low)?? 10/25/2022 03:43 Platelet Count 319 k/mm3 ()?? 10/25/2022 03:43 RDW-SD 44.0 femtoliters ()?? 10/25/2022 03:43 MPV 10.2 femtoliters ()?? 10/25/2022 03:43 Nucleated RBC (Automated) 0.0 #/100 WBC'S ()?? 10/25/2022 03:43 Abs. NRBC 0.0 k/mm3 ()?? 10/25/2022 03:43 Abs. Neut 4.6 k/mm3 ()?? 10/25/2022 03:43 Abs. Lymph 2.6 k/mm3 ()?? 10/25/2022 03:43 Abs. [place] 0.9 k/mm3 ()?? 10/25/2022 03:43 Abs. Eo 0.3 k/mm3 ()?? 10/25/2022 03:43 Abs. Baso 0.1 k/mm3 ()?? 10/25/2022 03:43 Neut % 54.2 % ()?? 10/25/2022 03:43 Lymph % 30.3 % ()?? 10/25/2022 03:43 [place] % 10.5 % ()?? 10/25/2022 03:43 Eos % 3.5 % ()?? 10/25/2022 03:43 Baso % 0.6 % ()?? 10/25/2022 03:43 Imm Gran 0.9 % ()?? 10/25/2022 03:43 Abs. Imm Gran 0.1 k/mm3 ()?? 10/25/2022 03:43 ?? CHEM GENERAL Sodium 139 mmol/L ()?? 10/25/2022 03:43 Potassium 4.1 mmol/L ()?? 10/25/2022 03:43 Chloride 102 mmol/L ()?? 10/25/2022 03:43 Bicarbonate Level 27 mmol/L ()?? 10/25/2022 03:43 Anion Gap 10 ()?? 10/25/2022 03:43 Glucose Level 114 mg/dL (High)?? 10/25/2022 03:43 BUN 18 mg/dL ()?? 10/25/2022 03:43 Creatinine-Blood 1.0 mg/dL ()?? 10/25/2022 03:43 Estimated GFR Creatinine 94 ML/MIN/1.73 M2 ()?? 10/25/2022 03:43 Calcium 9.9 mg/dL ()?? 10/25/2022 03:43 Protein, Total 7.3 Gm/dL ()?? 10/25/2022 03:43 Albumin 4.1 Gm/dL ()?? 10/25/2022 03:43 AG Ratio 1.3 ()?? 10/25/2022 03:43 Alkaline Phosphatase 74 units/L ()?? 10/25/2022 03:43 AST (SGOT) 49 units/L (High)?? 10/25/2022 03:43 ALT (SGPT) 46 units/L (High)?? 10/25/2022 03:43 Bilirubin, Total 0.4 mg/dL ()?? 10/25/2022 03:43 Lactate 1.5 mmol/L ()?? 10/25/2022 03:28 C-Reactive Protein 0.5 mg/dL ()?? 10/25/2022 03:43 ?? HEME OTHER Sed Rate 28 mm/hr (High)?? 10/25/2022 03:43 ?? VIROLOGY COVID-19 POC Result NEGATIVE ()?? 10/25/2022 02:47 ? EKG study Event Display: ECG 12-Lead Authored Date: Please click on pdf link to open report Event Display: ECG 12-Lead Authored Date: Ventricular Rate: 48 BPM Atrial Rate: 48 BPM P-R Interval: 142 ms QRS Duration: 86 ms Q-T Interval: 466 ms QTC Calculation(Bazett): 416 ms P [place]: 10 degrees R [place]: 13 degrees T [place]: 41 degrees Sinus bradycardia Otherwise normal ECG When compared with ECG of 03-SEP-2020 21:57, Vent. rate has decreased BY 27 BPM Minimal criteria for Inferior infarct are no longer Present Confirmed by DANIELLE LIZ [facility] ([id number]) on 10/28/2022 5:35:04 PM [place]: [facility] Eze MOISE, Anayeli: PERFORM, SIGN, VERIFY Event Display: Progress Note Hospital Authored Date: [id number] Patient: VICTORINO MAIER Age: 52 years Sex: Male : 1970 Associated Diagnoses: None Author: Anayeli Loo RN Findings Problem Related to Alteration in Integumentary : Alteration in Integumentary/new 10/29/2022 11:00 EST Alteration in Integumentary Related to Cellulitis Goals & Outcomes, Integumentary Nutritional intake is adequate for metabolic needs, Wound will progress towards healing Interventions, Integumentary Encourage & assist pt to change position frequently, Encourage & assist with range of motion exercises, Encourage family participation in pt's care as they are able, Increase turning frequency if red or blanched areas appear, Interdisciplinary consults as appropriate, Keep linen clean, dry and wrinkle free, Keep skin clean & dry, Minimize friction, shear and moisture, Monitor reddened areas for continued or increasing reddness, Record extent of impaired skinintegrity, Relieve pressure off bony areas, Reposition pt off reddened areas, Teach Pt/caregiver s/sof infection, Teach Pt/S.O. risks of & measures to prevent skin breakdown BH Goals/Interventions, Integumentary Yes Integumentary, Problem Start 10/26/2022 21:22 Reviewed plan with, Integumentary Patient Patient Progression, Integumentary Pt progressing according to plan . Narrative/Incidental Assumed care of patient at approx 10:30. Pt is A+O x 4, VS as recorded. Pt denies pain/discomfort atthis time. LSCTA, denies SOB/acute resp distress. Encouraged to cough and deep breathe. +BS x 4, abdomen is soft and round, no rebound tenderness. pt eating approx half of breakfast tray, adequate fluid intake. Continent of urine to bathroom, pt indepenendent with víctor care. +CMS all extremities, continues with Lovenox as anticoag tx, no s/sx of bleeding. OOB to bathroom independently, gait steady. Scabs to BUE improving per patient, pt continues with ABT/cellulitis. See CIS for full skin assessment. Tentative plans to d/c back to home, pt updated on plan of care. Pt resting in bed with eyes closed, resp even. Call farmer within reach, able to make needs known..Ludin DO, Elisa Perez: PERFORM Event Display: Progress Note Hospital Authored Date: Patient: ??VICTORINO MAIER ? Age:??52 Years?Sex:??Male?:??1970?? Mr. Victorino Maier last received methadone 100mg at 9am at [facility] on 10/29/22. ?? Sincerely, Elisa Noland DO [facility] [phone] Chadwick LIZ, Paulie: MODIFY, PERFORM Event Display: Progress Note Hospital Authored Date: Patient: ??VICTORINO MAIER ? Age:??52 Years?Sex:??Male?:??1970?? Chief Complaint/Reason for Consultation Cellulitis - Dr. Kothari History of Present Illness Patient seen and examined at bedside. Interval events reviewed. Patient feeling much better. Statesswelling in hand has improved considerably. Eager to be discharged. Review of Systems 14 systems fully reviewed and negative aside from what is listed above ?? 72 Hour Antibiotic History Active Antibiotics Calendar Day Last Administered First Administered Vancomycin??1,000 mg, 250 mL/hr, IVPB, Every 12 hours ?4 10/29/2022 03:06 10/26/2022 04:00 Objective Vital Signs?? Temperature: 98.4 DegF (10/29/22 06:02:00) Temperature Route: Oral (10/29/22 06:02:00) Pulse Rate: 68 bpm (10/29/22 06:02:00) Respiratory Rate: 16 br/min (10/29/22 08:58:00) Systolic Blood Pressure: 125 mm Hg (10/29/22 06:02:00) Diastolic Blood Pressure: 74 mm Hg (10/29/22 06:02:00) Blood pressure sites: Arm, right (10/29/22 06:02:00) Mean Arterial Pressure: 91 mm Hg (10/29/22 06:02:00) Pulse Pressure: 51 mm Hg (10/29/22 06:02:00) Oxygen Saturation: 100 % (10/29/22 06:02:00) Mode of Delivery (Oxygen): Room air (10/29/22 06:02:00) Early Warning Score: 0 (10/29/22 09:47:44) ?? Pain Scores?? No qualifying data available. ?? Intake/Output? 10/25 12:53 10/29 07:00 10/28 07:00 10/27 07:00 10/26 07:00 ?? 10/29 10:50 10/29 10:50 10/29 06:59 10/28 06:59 10/27 06:59 Intake ? 50 ? 50 ?0 ?0 ?0 Output ?0 ?0 ?0 ?0 ?0 Net Total ? 50 ? 50 ?0 ?0 ?0 ?? Precautions No Precautions documented.? Physical Exam Constitutional: Alert, No acute Distress. Overweight. Mental Status: Oriented to person, place and time. Head: Normocephalic. Atraumatic Eyes: Pupils are equal, round and reactive to light. Extraocular muscles intact. Ear, Nose and Throat: Poor dentition. No thrush or posterior erythema. Oropharynx clear, mucous membranes moist. Ears and nose without masses, lesions or deformities. Trachea midline. Neck: Supple, Full range of motion. No JVD or LAD Respiratory: Clear to auscultation. No wheezing, crackles,??rales or rhonchi. Cardiovascular: S1 S2 regular. No murmurs, rubs or gallops. Pulses intact Gastrointestinal: Abdomen soft, non-tender, non-distended. No rebound or guarding. Normal bowel sounds. Genitourinary: No costovertebral angle tenderness. Neurologic: Cranial nerves II-XII grossly intact. No focal neurological deficits.??Moves all extremities spontaneously. Sensation intact bilaterally. Skin: Much improved??bilateral swelling of the hands with needle teixeira/scabs. Tender. Non-pitting. restricted ROM of the fingers (improved as per patient). No warmth, erythema. No fluctuance. Diffuse needle tracks. No rashes or lesions. No petechiae or purpura.?? Musculoskeletal: Strength 5/5. No cyanosis or clubbing.??Normal range of motion. Heme/Lymphatics/Immun: Palpation of neck reveals no swelling or tenderness of neck nodes. Psychiatric: Normal mood and affect Assessment/Plan Patient is a 52 yo male pmh IVDU (Heroin and Cocaine on Methadone 90 mg), Hepatitis C (untreated), prior R forearm/hand abscess with OM s/p I&D with debridement) presenting to ED d/t bilateral handswelling. Not in septic shock. No evidence of OM.??No evidence for abscess/fluid collection. Improving on antibiotics. Suspect Cellulitis from IVDU. Has had considerable improvement with Vancomycin. CTof hands showing suspected tenosynovitis. Evaluated by surgery and recommending no further intervention. Eager to be discharged which we feel is understandable. Would ideally have patient continue antibiotics and then follow up with us in clinic to discuss treatment for Hepatitis C. ?? Diagnoses Cellulitis of left upper limb ??(L03.114) Cellulitis of right hand ??(L03.113) Chronic viral hepatitis C ??(B18.2) Cocaine use disorder ??(F14.10) Methicillin resistant Staphylococcus aureus infection, unspecified site ??(A49.02) Moderate opioid use disorder on maintenance therapy ??(F11.20) Nicotine dependence, cigarettes, uncomplicated ??(F17.210) Opioid abuse, uncomplicated ??(F11.10) ?? Recommendations Continue Vancomycin (pharmacy dosed) Can transition to Bactrim DS BID and Augmentin 875 mg BID 3 weeks therapy Follow up PCP Encouraged abstinence and continuation of Methadone 90 mg Alcoholics Anonymous/therapy Follow up with us in clinic for Hep C treatment ID signing off ?? Discussed with Dr. Davalos Discussed with Dr. Noland ?? Paulie Genao MD Infectious Disease Fellow, PGY-5 Please reach out via Cortext Results Recent Labs CHEM GENERAL Sodium 140 mmol/L ()?? 10/28/2022 04:57 Potassium 4.0 mmol/L ()?? 10/28/2022 04:57 Chloride 104 mmol/L ()?? 10/28/2022 04:57 Bicarbonate Level 26 mmol/L ()?? 10/28/2022 04:57 Anion Gap 10 ()?? 10/28/2022 04:57 Glucose Level 111 mg/dL (High)?? 10/28/2022 04:57 BUN 11 mg/dL ()?? 10/28/2022 04:57 Creatinine-Blood 0.8 mg/dL ()?? 10/28/2022 04:57 Estimated GFR Creatinine 108 ML/MIN/1.73 M2 ()?? 10/28/2022 04:57 Calcium 9.3 mg/dL ()?? 10/28/2022 04:57 ?? HEME OTHER Hold Lavender Top SPECIMEN DISCARDED AFTER 24 HOURS. ()?? 10/28/2022 04:57 ?? TOXICOLOGY/TDM Vancomycin Level, Trough 16.4 mg/L ()?? 10/28/2022 04:57 ?? Aamir Davalos MD: PERFORM Event Display: Progress Note Hospital Authored Date: I have seen and examined the patient as well today and I agree with the HPI, physical exam findings,impression and recommendations as outlined in the fellow's/resident's/PA/EMERGENCY MEDICINE PHYSICIAN ASSISTANT note as they reflect my direct input. Please page the author of the note for any clarifications. Note Anayeli Loo RN: PERFORM Event Display: Discharge/Transfer Note Hospital Authored Date: Nursing Discharge Note Entered On: 10/29/2022 12:40 EST Performed On: 10/29/2022 12:38 EST by Anayeli Loo RN Nursing Discharge Note 2 Discharge Time : 10/29/2022 12:30 EST Discharge Level of Care at Discharge : Home/Senior Living/Foster Care Patient Left Unit Via : Ambulatory Patient Accompanied Off Unit with : Responsible adult DC Instructions Provided & Signed by Pt : Yes Patient Understands D/C Instructions : Yes Patient Instructions Discharge Signed : Yes Did Pt have Specialty Bed or Wound Vac : No Anayeli Loo RN - 10/29/2022 12:38 Elisa Fitzgerald DO: PERFORM Event Display: Discharge/Transfer Note Hospital Authored Date: Patient: ??VICTORINO MAIER ? Age:??52 Years?Sex:??Male?:??1970?? Patient Information Discharge Location: S64 Primary Care Physician: Not on Staff, PCP Admit Date/Time: 10/25/22 12:53 Discharge Disposition Discharge Disposition: Home: No Services Discharge Diagnosis Cellulitis of left upper limb (L03.114) Cellulitis of right hand (L03.113) Chronic viral hepatitis C (B18.2) Cocaine use disorder (F14.10) Methicillin resistant Staphylococcus aureus infection, unspecified site (A49.02) Moderate opioid use disorder on maintenance therapy (F11.20) Nicotine dependence, cigarettes, uncomplicated (F17.210) Opioid abuse, uncomplicated (F11.10) ?? _ Discharge Medications Amoxicillin-Clavulanate (Augmentin 875 mg-125 mg oral tablet)?1?tab(s)?By Mouth?Every 12hours?for 21?Days Methadone (methadone 10 mg/5 mL oral solution)?50?Milliliter?100?Milligram?By Mouth?Daily Sulfamethoxazole/Trimethoprim (Bactrim DS 800 mg-160 mg oral tablet)?1?tab(s)?By Mouth?Every 12 hours?for 21?Days ? Hospital Course ??52-year-old male patient with a past medical history of polysubstance abuse(daily injection use), history of untreated hepatitis C, history of prior right forearm abscess with osteomyelitis s/p debridement who who presented to the ER for further evaluation of swelling of both hands. ?? Cellulitis Concerning for tenosynovitis hx Left Cephalic Vein Thrombus/Superficial Thrombophlebitis ??Patient reported daily??IVDU ??Presents with bilateral swelling of the dorsal surface of both hands. ??History of left cephalic vein thrombus/superficial thrombi this was supposed to be on apixaban, which was negative. ??seen by hand surgery, recc abx. no need for surgical intervention significantly improved exam seen by ID, recc 3 weeks of bactrim and augmentin, with ID follow up as OP ? History of Polysubstance Abuse Extensive counseling was provided to the patient ??He reports that he is on methadone 90 mg. Confirmed with [facility] last dose 10/24??90mg. seen by addiction. methadone increased to 100mg daily last dose letter provided ?Transaminitis ??untreated hepatitis?? C ??AST and ALT mildly elevated ??f/u as outpatient??in ID??clinic ?? Objective Vital Signs?? Temperature: 98.4 DegF (10/29/22 06:02:00) Temperature Route: Oral (10/29/22 06:02:00) Pulse Rate: 68 bpm (10/29/22 06:02:00) Respiratory Rate: 16 br/min (10/29/22 08:58:00) Systolic Blood Pressure: 125 mm Hg (10/29/22 06:02:00) Diastolic Blood Pressure: 74 mm Hg (10/29/22 06:02:00) Blood pressure sites: Arm, right (10/29/22 06:02:00) Mean Arterial Pressure: 91 mm Hg (10/29/22 06:02:00) Pulse Pressure: 51 mm Hg (10/29/22 06:02:00) Oxygen Saturation: 100 % (10/29/22 06:02:00) Mode of Delivery (Oxygen): Room air (10/29/22 06:02:00) Early Warning Score: 0 (10/29/22 09:47:44) ? . Physical Exam General:??NAD Head:??NCAT Eyes:??EOMI Ear, Nose and Throat:??MMM Respiratory:??CTA Cardiovascular:RRR Gastrointestinal:??soft nt nd Neurologic :alert and oriented ?? Consultants hand surgery ID Pending Results Add On Lab Order ordered on 10/25/2022 Add On Lab Order ordered on 10/25/2022 Add On Lab Order ordered on 10/26/2022 Blood Culture ordered on 10/25/2022 Blood Culture ordered on 10/25/2022 Blood Culture #2 ordered on 10/25/2022 Follow-Up Appointments Added Follow Up ?Time Frame ?Comments Chadwick LIZ, Paulie?office will call for follow up appt Home Health Face to Face ^HomeHealthFTF Results Discharge Labs BLOOD COUNT & DIFF WBC 8.5 k/mm3 ()?? 10/26/2022 08:55 RBC 5.68 m/mm3 ()?? 10/26/2022 08:55 Hgb 15.8 Gm/dL ()?? 10/26/2022 08:55 Hct 49.2 % ()?? 10/26/2022 08:55 MCV 86.6 femtoliters ()?? 10/26/2022 08:55 MCH 27.8 pg ()?? 10/26/2022 08:55 MCHC 32.1 g/dL (Low)?? 10/26/2022 08:55 Platelet Count 342 k/mm3 ()?? 10/26/2022 08:55 RDW-SD 45.6 femtoliters ()?? 10/26/2022 08:55 MPV 10.8 femtoliters ()?? 10/26/2022 08:55 Nucleated RBC (Automated) 0.0 #/100 WBC'S ()?? 10/26/2022 08:55 Abs. NRBC 0.0 k/mm3 ()?? 10/26/2022 08:55 Abs. Neut 4.6 k/mm3 ()?? 10/25/2022 03:43 Abs. Lymph 2.6 k/mm3 ()?? 10/25/2022 03:43 Abs. [place] 0.9 k/mm3 ()?? 10/25/2022 03:43 Abs. Eo 0.3 k/mm3 ()?? 10/25/2022 03:43 Abs. Baso 0.1 k/mm3 ()?? 10/25/2022 03:43 Neut % 54.2 % ()?? 10/25/2022 03:43 Lymph % 30.3 % ()?? 10/25/2022 03:43 [place] % 10.5 % ()?? 10/25/2022 03:43 Eos % 3.5 % ()?? 10/25/2022 03:43 Baso % 0.6 % ()?? 10/25/2022 03:43 Imm Gran 0.9 % ()?? 10/25/2022 03:43 Abs. Imm Gran 0.1 k/mm3 ()?? 10/25/2022 03:43 ?? CARDIAC CK, Total 99 units/L ()?? 10/25/2022 03:43 CK MB Confirmation - Quant 3.2 ng/mL ()?? 10/25/2022 03:43 ?? CHEM GENERAL Sodium 140 mmol/L ()?? 10/28/2022 04:57 Potassium 4.0 mmol/L ()?? 10/28/2022 04:57 Chloride 104 mmol/L ()?? 10/28/2022 04:57 Bicarbonate Level 26 mmol/L ()?? 10/28/2022 04:57 Anion Gap 10 ()?? 10/28/2022 04:57 Glucose Level 111 mg/dL (High)?? 10/28/2022 04:57 BUN 11 mg/dL ()?? 10/28/2022 04:57 Creatinine-Blood 0.8 mg/dL ()?? 10/28/2022 04:57 Estimated GFR Creatinine 108 ML/MIN/1.73 M2 ()?? 10/28/2022 04:57 Calcium 9.3 mg/dL ()?? 10/28/2022 04:57 Protein, Total 7.3 Gm/dL ()?? 10/25/2022 03:43 Albumin 4.1 Gm/dL ()?? 10/25/2022 03:43 AG Ratio 1.3 ()?? 10/25/2022 03:43 Alkaline Phosphatase 74 units/L ()?? 10/25/2022 03:43 AST (SGOT) 49 units/L (High)?? 10/25/2022 03:43 ALT (SGPT) 46 units/L (High)?? 10/25/2022 03:43 Bilirubin, Total 0.4 mg/dL ()?? 10/25/2022 03:43 Lactate 1.5 mmol/L ()?? 10/25/2022 03:28 C-Reactive Protein 0.5 mg/dL ()?? 10/25/2022 03:43 ? HEME OTHER Sed Rate 28 mm/hr (High)?? 10/25/2022 03:43 Hold Lavender Top SPECIMEN DISCARDED AFTER 24 HOURS. ()?? 10/28/2022 04:57 ?? TOXICOLOGY/TDM Vancomycin Level, Trough 16.4 mg/L ()?? 10/28/2022 04:57 ? VIROLOGY COVID-19 PCR Specimen Source NASAL ()?? 10/27/2022 06:00 COVID-19 PCR Result NEGATIVE ()?? 10/27/2022 06:00 COVID-19 POC Result NEGATIVE ()?? 10/25/2022 02:47 ? Microbiology ?? COVID-19 (2019 Novel Coronavirus) PCR?? Completed?? Source: Nasal Body Site: Nose Collected Dt/Tm: 10/27/2022 05:22 Last Updated Dt/Tm: 10/27/2022 15:38 ? 35_ minutes spent on discharge Whit MOISE, Mckenzie: PERFORM Event Display: Patient Education/Instruction Authored Date: Inpatient Adult Discharge Instructions [address] [address] Name: VICTORINO MAIER : 1970 Visit: 10/25/2022 12:53:00 Current Date: 10/29/2022 12:12 Account: [id number] Inpatient Adult Discharge Instructions We would like to thank you for allowing us to assist you with your healthcare needs. The following includes patient education materials and information regarding your injury/illness. Our entire staff strives to provide an excellent experience for our patients and their families. PLEASE ENSURE YOU FOLLOW-UP PER THE INSTRUCTIONS BELOW! ?? YOUR OPINION IS IMPORTANT TO US! Please complete the survey you may receive by mail or email. Your feedback will be used to make improvements to the healthcare experiences of our patients and their families. Surveys are administered by [employer] ?? If further treatment with your primary care physician or another doctor is recommended, it is important for you to keep the appointment. Call your primary care physician or return to the Emergency Department immediately if your condition worsens, fails to improve, or new symptoms develop. If you need to find a doctor, you can call [facility] for a referral at [phone] or toll free at [phone] or log in to [email or web address] ?? You can view and manage your care through the patient portal or by using a health care mane of your choosing. [employer] is a website that allows you to securely view your medical information including your hospital discharge summary, office visit summaries, medications and follow-up visits. You can also request appointments, renew medications, and request access to your medical information using a health care mane of your choosing, or just ask a question. You can enroll at [email or web address] or register during your next office visit. You have been discharged from [facility], Patient Care Unit: S64. If you have any questions regarding these instructions after you leave, please call us and we will be happy to assist you. [facility] Your Care Team Attending Physician Elisa Noland DO Consulting Providers Anoop LIZ, Tika Lowry MD Discharging Providers Elisa Noland DO Reason for Admission Cellulitis - Dr. Kothari Your Diagnosis Cellulitis Cellulitis of right hand Intravenous drug user Hepatitis C infection Cellulitis IV drug user Moderate opioid use disorder on maintenance therapy Cocaine use disorder Nicotine dependence Tests Performed Below is a partial list of the tests performed during your hospitalization. You may have had other tests and procedures not included in this list. Please discuss all test results with your provider. Basic Metabolic Panel C-REACTIVE PROTEIN CBC CBC w/ Differential CK (CREATINE KINASE) CKMB CONFIRMATION/QUANT Comprehensive Metabolic Panel COVID-19 (2019 Novel Coronavirus) PCR COVID-19 RNA POC HOLD LAVENDER TUBE Lactate Level SEDIMENTATION RATE,AUTOMATED Vancomycin Trough CT Ext Upper W/ Contrast Left CT Ext Upper W/ Contrast Right XR Chest 2 Views Frontal and Lat XR Chest Portable XR Forearm 2 Views Left XR Forearm 2 Views Right XR Hand Min 3 Views Left XR Hand Min 3 Views Right Primary Care Provider Not on Staff, PCP Advance Directive Health Care Proxy on File No Patient refuses to discuss No qualifying data available. Discharge Vitals Temperature: 98.4 DegF Weight: 94 kg Pulse Rate: 68 bpm ?? Respiratory Rate: 16 br/min ?? Systolic Blood Pressure: 125 mm Hg ?? Diastolic Blood Pressure: 74 mm Hg ?? Oxygen Saturation: 100 % ?? Studies Pending All tests and labs ordered during this hospital stay have been completed unless listed below. Pleasediscuss all pending results with your provider listed above in these instructions. ?? Add On Lab Order Blood Culture Blood Culture #2 What to do next Instructions From Your Doctor Discharge Orders You Need to Schedule the Following Appointments Follow Up with??Chadwick LIZ, Paulie When?? Why: office will call for follow up appt Where: [address] [place] [phone] Discharge Medications VICTORINO MAIER :1970 Visit Date:10/25/2022 Medications: Please continue your medications until treatment is completed or stopped by your provider. Medications not listed below should be discontinued. Discuss any questions related to medications with your provider. What How Much When Instructions Next Dose New Amoxicillin-Clavulanate (Augmentin 875 mg-125 mg oraltablet) 1 tab(s) Oral Every 12 hours Duration: 21 Days Pickup at [facility] 3 Today New Sulfamethoxazole/ Trimethoprim (Bactrim DS 800 mg-160 mg oral tablet) 1 tab(s) Oral Every 12 hours Duration: 21 Days Pickup at [facility] 3 Today Changed Methadone (methadone 10 mg/ 5 mL oral solution) 50 Milliliter Oral Daily Tomorrow morning Pharmacy Information [facility] 3: [address], [place] [id number] [phone] ?? What How Much When Comments Stop Taking apixaban (apixaban Starter Pack 5 mg oral tablet) 2 tab(s) Oral Twice a day Duration: 7 Days followed by 1 tablet by mouth twice daily for 23 days ?? Test Results Below is a partial list of the most recent Laboratory test results done prior to this discharge. You may have had other tests and procedures not included in this list. Please discuss all test results with your provider. Basic Metabolic Panel (10/28/2022) ???Sodium - 140 mmol/L???Potassium - 4.0 mmol/L???Chloride - 104 mmol/L???Bicarbonate Level - 26 mmol/L???Anion Gap - 10???Glucose Level - 111 mg/dL???BUN - 11 mg/dL???Creatinine-Blood - 0.8 mg/dL???Estimated GFR Creatinine - 108 ML/MIN/1.73 M2???Calcium - 9.3 mg/dL C-REACTIVE PROTEIN (10/25/2022) ???C-Reactive Protein - 0.5 mg/dL CBC (10/26/2022) ???WBC - 8.5 k/mm3???RBC - 5.68 m/mm3???Hgb - 15.8 Gm/dL???Hct - 49.2 %???MCV - 86.6 femtoliters???MCH - 27.8 pg???MCHC - 32.1 g/dL???Platelet Count - 342 k/mm3???RDW-SD - 45.6 femtoliters???MPV - 10.8femtoliters???Nucleated RBC (Automated) - 0.0 #/100 WBC'S???Abs. NRBC - 0.0 k/mm3 CBC w/ Differential (10/25/2022) ???WBC - 8.6 k/mm3???RBC - 5.56 m/mm3???Hgb - 14.8 Gm/dL???Hct - 47.4 %???MCV - 85.3 femtoliters???MCH - 26.6 pg???MCHC - 31.2 g/dL???Platelet Count - 319 k/mm3???RDW-SD - 44.0 femtoliters???MPV - 10.2femtoliters???Nucleated RBC (Automated) - 0.0 #/100 WBC'S???Abs. NRBC - 0.0 k/mm3???Abs. Neut - 4.6 k /mm3???Abs. Lymph - 2.6 k/mm3???Abs. [place] - 0.9 k/mm3???Abs. Eo - 0.3 k/mm3???Abs. Baso - 0.1 k/mm3???Neut % - 54.2 %???Lymph % - 30.3 %???[place] % - 10.5 %???Eos % - 3.5 %???Baso % - 0.6 %???Imm Gran - 0.9 %???Abs. Imm Gran - 0.1 k/mm3 CK (CREATINE KINASE) (10/25/2022) ???CK, Total - 99 units/L CKMB CONFIRMATION/QUANT (10/25/2022) ???CK MB Confirmation - Quant - 3.2 ng/mL Comprehensive Metabolic Panel (10/25/2022) ???Sodium - 139 mmol/L???Potassium - 4.1 mmol/L???Chloride - 102 mmol/L???Bicarbonate Level - 27 mmol/L???Anion Gap - 10???Glucose Level - 114 mg/dL???BUN - 18 mg/dL???Creatinine-Blood - 1.0 mg/dL???Estimated GFR Creatinine - 94 ML/MIN/1.73 M2???Calcium - 9.9 mg/dL???Protein, Total - 7.3 Gm/dL???Albumin - 4.1 Gm/dL???AG Ratio - 1.3???Alkaline Phosphatase - 74 units/L???AST (SGOT) - 49 units/L???ALT (SGPT) - 46 units/L???Bilirubin, Total - 0.4 mg/dL COVID-19 (2019 Novel Coronavirus) PCR (10/27/2022) ???COVID-19 PCR Specimen Source - NASAL???COVID-19 PCR Result - NEGATIVE COVID-19 RNA POC (10/25/2022) ???COVID-19 POC Result - NEGATIVE HOLD LAVENDER TUBE (10/28/2022) ???Hold Lavender Top - SPECIMEN DISCARDED AFTER 24 HOURS. Lactate Level (10/25/2022) ???Lactate - 1.5 mmol/L SEDIMENTATION RATE,AUTOMATED (10/25/2022) ???Sed Rate - 28 mm/hr Vancomycin Trough (10/28/2022) ???Vancomycin Level, Trough - 16.4 mg/L Immunizations This Visit Given Vaccine Date Commentsinfluenza virus vaccine, inactivated 10/27/2022 Early/Late Reason: Patient Refused Allergies (NKA means No Known Allergies) NKA Problems Active Problems??(2) Bacteremia?? Hand osteomyelitis, right?? Education Materials Below is the list of Educational Leaflet Providered with your Discharge Instructions. Valuables and Belongings I fully understand and agree that [facility] accepts no responsibility for all my personal property including clothing, toilet articles, radios, jewelry, dentures, hearing aids, rings, money, or any other property that is in my possession or is brought to me after admission. I understand certain valuables may be placed in a hospital safe for a short period of time. I understand that the hospital is not liable for loss or damage due to accident, fire, or other natural occurrence while said property is in the safe. I accept full responsibility for any personal property that I keep with me, and will not hold the hospital responsible in case of loss or disappearance. I acknowledge that i have been encouraged to send valuables and belongings home. ?? Review of Valuable and Belonging List: With patient Date for Pt to Sign Valuables/Belongings: 10/25/22 16:56:00 ?? Other Discharge Information ?? Wound Assessment?? Wound Assessment?? Wound Location I: Left arm Wound Location II: Right arm ? Pulmonary Rehab Status?? Pulmonary Rehab Discharge Status?? Respiratory Rate: 16 br/min ? Common Emergency Awareness Tips IS IT A STROKE? Act FAST and Check for these signs: FACE Does the face look uneven? ARM Does one arm drift down? SPEECH Does their speech sound strange? TIME Call at any sign of stroke ?? Heart Attack Signs Chest discomfort: Most heart attacks involve discomfort in the center of the chest and lasts more than a few minutes, or goes away and comes back. It can feel like uncomfortable pressure, squeezing, fullness or pain. Discomfort in upper body: Symptoms can include pain or discomfort in one or both arms, back, neck, jaw or stomach. Shortness of breath: With or without discomfort. Other signs: Breaking out in a cold sweat, nausea, or lightheaded. Remember, MINUTES DO MATTER. If you experience any of these heart attack warning signs, call to get immediate medical attention! ?? Smoking can increase your chances of developing chronic health problems and can cause harmful effects to other family members in your house. If you smoke, you are strongly encouraged to quit. Please call [facility] at [phone] or 7-428-659[employer] (3472) or log in to [email or web address] for referrals to smoking cessation programs. ?? The National Suicide Prevention Hotline is available 25/05 if you or someone you know needs to find areason to keep living. By calling 2-383-244-[facility] (2051) you'll be connected to a skilled, trained counselor at a crisis center in your area. INPATIENT DISCHARGE INSTRUCTIONS SIGNATURE VICTORINO EDMONDS Location:[facility] Registration Date and Time:10/25/2022 12:53 EST Primary Care Physician: Not on Staff, PCP VICTORINO MORRIS, have received the above patient education materials/instructions and have verbalized understanding. If ambulance or transport services are being used I further acknowledge being given a choice of service. ?? If you need to contact me, please call me at this number: . Patient/Research Statistician Name: Patient/Research Statistician Signature: Relationship to Patient: Witness Name/Signature: Date: Mckenzie Sherman RN: PERFORM Event Display: Patient Education Leaflets Authored Date: Cellulitis ?? [id number] Cellulitis Cellulitis is an infection of the deep layers of skin. A break in the skin, such as a cut or scratch, can let bacteria under the skin. Cellulitis causes the affected skin to become red, swollen, warm, and sore. The reddened areas havea border you can see. An open sore may leak fluid (pus). You may have a fever, chills, and pain. Cellulitis is treated with antibiotics taken for 7 to 10 days. An open sore may be cleaned and covered with cool wet gauze. Symptoms should get better 1 to 2 days after treatment is started. Make sureto take all the antibiotics for the full number of days until they are gone. Keep taking the medicine even if your symptoms go away. If not treated, cellulitis can get into the bloodstream and lymph nodes. The infection can then spread throughout the body. This causes serious illness. Home care Follow these tips: ??? Limit the use of the part of your body with cellulitis.? If the infection is on your leg, keep your leg raised while sitting. This helps reduce swelling. ??? Take all of the antibiotic medicine exactly as directed until it is gone. Don't miss any doses, especially during th e first 7 days. Finish taking all of the medicine even when your symptoms get better. ??? Keep the affected area clean and dry. ??? Wash your hands with soap and clean, running water before and after touching your skin. Anyone else who touches your skin should also wash his or her hands. Don't share towels. ?? Follow-up care Follow up with your healthcare provider, or as advised. If your infection doesn't go away after finishing the first antibiotic, your healthcare provider will prescribe a different one. ?? When to seek medical advice Call your healthcare provider right away if any of these occur: ??? Red areas that spread ??? Swelling or pain that gets worse ??? Fluid leaking from the skin (pus) ??? Fever higher of 100.4?? F (38.0?? C) or higher after 2 days on antibiotics ?? Last Reviewed Date: 2021 ?? [employer]. All rights reserved. This information is not intended as a substitute for professional medical care. Always follow your healthcare professional's instructions. ??[facility] , CIS S: TRANSCRIBE Bhumika Garcia MD: VERIFY Event Display: Result: Authored Date: Chest 2 Views Frontal and Lat Hx of Present Illness: reports abscesses on hands, no fevers, reports injecting 30 bags qd has cut down to 8 bags and wants help to stop, no chest, abd symptoms, + ROGEL, has been taking ? Abx; Reason: Shortness of Breath; Clinical Question(s): Pneumonia; Special Instructions: This is a protocol film and radiologist should call any findings to the Charge Nurse COMPARISON: None. FINDINGS: LINES AND TUBES: None. LUNGS AND PLEURA: Clear lungs. Normal pulmonary vascularity. No pleural effusion. No pneumothorax. HEART, MEDIASTINUM AND MARSHALL: Heart is normal in size. Normal mediastinal and hilar contour. BONES AND SOFT TISSUES: The bones are demineralized. Multilevel thoracic spine moderate vertebral body compression fracture deformities. IMPRESSION: There is no evidence of acute cardiopulmonary pathology. The bones are demineralized. Multilevel thoracic spine moderate vertebral body compression fracture deformities. WSN: [id number] Ordering Physician: Tej Moss Dictated By: Bhumika Garcia MD Dictated Date/Time: 10/25/22 4:20 am Reviewed By: Bhumika Garcia MD Signed By: Bhumika Garcia MD Signed Date/Time: 10/25/22 4:20 am Transcribed By: TITO Transcribed Date/Time: 10/25/22 4:[address] Upper extremity W contrast IV [facility] , ANGELIQUE S: TRANSCRITanja Steen MD: VERIFY Event Display: Result: Authored Date: [id number] CT Ext Upper W/ Contrast Right Reason: Infection; Clinical Question(s): Hand TECHNIQUE: Helical CT of the right hand was performed after the intravenous injection of 100 cc of Omnipaque 300 as administered with concurrent left upper extremity CT, with images formatted in 3 planes. Weight-based protocol using automatic tube modulation was used to optimize exposure parameters. COMPARISONS: Right upper extremity CT dated 05/20/2015. FINDINGS: Bones and joints: No fracture or dislocation is present. No erosions, productive changes or abnormalcalcifications are noted. Soft Tissues: There is subcutaneous edema on the dorsum of the hand. There are focal areas of attenuation of the dorsal soft tissues of the hand extending to the wrist which may reflect postoperative change/scarring. Subcutaneous edema is also seen along the anterolateral aspect of the wrist and extending into the base of the thumb. There is a small amount of rim-enhancing hypodensity along the superficial aspect of the extensor pollicis brevis tendon at the level of the radiocarpal joint (image 37 of series 2011). The remainder of the tendons appear unremarkable for the CT technique. IMPRESSION: Small amount of rim-enhancing hypodensity along the superficial aspect of the extensor pollicis brevis tendon at the level of the radiocarpal joint, concerning for tenosynovitis. No CT evidence of osteomyelitis. Subcutaneous edema, which is nonspecific and in the appropriate setting can be seen with cellulitis. WSN: [id number] Ordering Physician: Yousif Cruz Dictated By: Tanja Demarco MD Dictated Date/Time: 10/27/22 5:55 pm Reviewed By: Tanja Demarco MD Signed By: Tanja Demarco MD Signed Date/Time: 10/27/22 5:55 pm Transcribed By: TITO Transcribed Date/Time: 10/27/22 5:36 pmSPANGELIQUE gonzalez S: TRANSCRITanja Steen MD: VERIFY Event Display: Result: Authored Date: [id number] CT Ext Upper W/ Contrast Left Reason: Infection; Clinical Question(s): Hand; Order Comment: TECHNIQUE: Helical CT of the left hand was performed after the intravenous injection of 100 cc of Omnipaque 300, administered along with contrast performed right upper extremity CT. Images were formatted in 3 planes. Weight-based protocol using automatic tube modulation was used to optimize exposure pa rameters. CTDIvol Body: 8.00 mGy, DLP Body: 249 mGy*cm. COMPARISONS: None FINDINGS: Bones and joints: No fracture or dislocation is present. No erosions, productive changes or abnormalcalcifications are noted. Soft Tissues: Extensive dorsal subcutaneous edema is seen in the hand with mild dorsal and lateral subcutaneous edema extending into the wrist. No rim-enhancing fluid collection is seen. No subcutaneous gas. There is a shallow contour defect in the dorsal soft tissues superficial to the interspace between the fourth and fifth metacarpals which may reflect ulceration. IMPRESSION: Subcutaneous edema, which is nonspecific and can be seen with cellulitis. No evidence of rim-enhancing fluid collection. Shallow contour defect along the dorsum of the hand on its medial aspect, which may reflect ulceration. No CT evidence of osteomyelitis. WSN: [id number] Ordering Physician: Yousif Cruz Dictated By: Tanja Demarco MD Dictated Date/Time: 10/27/22 6:00 pm Reviewed By: Tanja Demarco MD Signed By: Tanja Demarco MD Signed Date/Time: 10/27/22 6:00 pm Transcribed By: TITO Transcribed Date/Time: 10/27/22 5:55 pm XR Hand - left GE 3 Views [facility] , CIS S: TRANSCRIBE Bhumika Garcia MD O: VERIFY Event Display: Result: Authored Date: Hand Min 3 Views Left, 3 views Hx of Present Illness: reports abscesses on hands, no fevers, reports injecting 30 bags qd has cut down to 8 bags and wants help to stop, no chest, abd symptoms, + ROGEL, has been taking ? Abx; Reason: Pain; Clinical Question(s): Osteomyelitis; foreign body COMPARISON: None. FINDINGS: No fractures or bone lesions. No arthritic changes. There is soft tissue swelling. IMPRESSION: There is soft tissue swelling. WSN: [id number] Ordering Physician: Kayla Shaver Dictated By: Bhumika Garcia MD Dictated Date/Time: 10/25/22 11:52 a Reviewed By: Bhumika Garcia MD Signed By: Bhumika Garcia MD Signed Date/Time: 10/25/22 11:52 am Transcribed By: TITO Transcribed Date/Time: 10/25/22 11:51 am XR Radius and Ulna - left 2 Views [facility] , CIS S: TRANSCRIBE Rene Sykes MD: VERIFY Event Display: Result: Authored Date: [id number] Forearm 2 Views Left Hx of Present Illness: reports abscesses on hands, no fevers, reports injecting 30 bags qd has cut down to 8 bags and wants help to stop, no chest, abd symptoms, + ROGEL, has been taking ? Abx; Reason: Pain; Clinical Question(s): Osteomyelitis; Foreign body COMPARISON: Right forearm radiographs of the same date. FINDINGS: No fractures or bone lesions. Bone mineralization is normal. No osseous erosion or periosteal reaction. The visualized joint spaces are normal. There is soft tissue swelling along the proximal portion of the hand, especially dorsally. IMPRESSION: No osseous or joint space abnormality. Soft tissue swelling in the hand, especially dorsally. WSN: [id number] Ordering Physician: Kayla Shaver Dictated By: Rene Sykes MD Dictated Date/Time: 10/25/22 11:58 a Reviewed By: Rene Sykes MD Signed By: Rene Sykes MD Signed Date/Time: 10/25/22 11:58 am Transcribed By: TITO Transcribed Date/Time: 10/25/22 11:56 am Portable XR Chest Views [facility] , CIS S: TRANSCRIBE Rene Sykes MD: VERIFY Event Display: Result: Authored Date: [id number] Chest Portable at 10:50 AM Hx of Present Illness: reports abscesses on hands, no fevers, reports injecting 30 bags qd has cut down to 8 bags and wants help to stop, no chest, abd symptoms, + ROGEL, has been taking ? Abx; Reason: Shortness of Breath; Clinical Question(s): CHF COMPARISON: 3:54 AM on the same date. FINDINGS: LINES AND TUBES: None. LUNGS AND PLEURA: Linear atelectasis in the periphery of the left lung base. Lungs are otherwise clear with normal vascularity. No pleural effusion. No pneumothorax. HEART, MEDIASTINUM AND MARSHALL: Heart is normal in size. Normal mediastinal and hilar contour. BONES AND SOFT TISSUES: No acute abnormality. IMPRESSION: Mild linear atelectasis in the left lung base. No other acute abnormality. WSN: [id number] Ordering Physician: Kayla Shaver Dictated By: Rene Sykes MD Dictated Date/Time: 10/25/22 11:59 a Reviewed By: Rene Sykes MD Signed By: Rene Sykes MD Signed Date/Time: 10/25/22 11:59 am Transcribed By: TITO Transcribed Date/Time: 10/25/22 11:58 am XR Hand - right GE 3 Views [facility] , CIS S: TRANSCRIBE Rene Sykes MD: VERIFY Event Display: Result: Authored Date: [id number] Hand Min 3 Views Right, 3 views Hx of Present Illness: reports abscesses on hands, no fevers, reports injecting 30 bags qd has cut down to 8 bags and wants help to stop, no chest, abd symptoms, + ROGEL, has been taking ? Abx; Reason: Pain; Clinical Question(s): Osteomyelitis; Foreign body COMPARISON: Left hand radiographs of the same date. FINDINGS: No fractures or bone lesions. Bone mineralization is normal. No osseous erosion or periosteal reaction. No arthritic changes. Soft tissue swelling in the proximal portion of each hand. No subcutaneous emphysema. No foreign body. IMPRESSION: No osseous or joint space abnormality. Soft tissue swelling without subcutaneous emphysema WSN: [id number] Ordering Physician: Kayla Shaver Dictated By: Rene Sykes MD Dictated Date/Time: 10/25/22 12:01 p Reviewed By: Rene Sykes MD Signed By: Rene Sykes MD Signed Date/Time: 10/25/22 12:01 pm Transcribed By: TITO Transcribed Date/Time: 10/25/22 11:59 am XR Radius and Ulna - right 2 Views [facility] , CIS S: TRANSCRIBE Angie Levin MD, I: VERIFY Event Display: Result: Authored Date: [id number] Forearm 2 Views Right Hx of Present Illness: reports abscesses on hands, no fevers, reports injecting 30 bags qd has cut down to 8 bags and wants help to stop, no chest, abd symptoms, + ROGEL, has been taking ? Abx; Reason: Pain; Clinical Question(s): Osteomyelitis; Foreign body COMPARISON: Right wrist 05/31/2015. FINDINGS: No fractures or bone lesions. The visualized joint spaces are normal. Soft tissue edema noted in the form, particularly on the ulnar side. No radiopaque foreign object ordefinite soft tissue gas. IMPRESSION: Soft tissue edema noted in the form, particularly on the ulnar side. No radiopaque foreign object ordefinite soft tissue gas. No acute bone or joint abnormality. WSN: [id number] Ordering Physician: Kayla Shaver Dictated By: Angie Levin MD, I Dictated Date/Time: 10/25/22 2:34 pm Reviewed By: Angie Levin MD, I Signed By: Angie Levin MD, I Signed Date/Time: 10/25/22 2:34 pm Transcribed By: TITO Transcribed Date/Time: 10/25/22 2:31 pm Patient Care team information Care Team PersonnelName: Shaista Harding RN Position: [facility] SN RN Member Role: Primary Care Nurse Name: Batsheva Kyle RN Position: [facility] RN Member Role: Primary Care Nurse Name: Mamie Christiansen RN Position: [facility] MR W/ Merge Member Role: Primary Care Nurse Name: Jaime De La Vega RN Position: [facility] RN Member Role: Primary Care Nurse Name: Kemla Mcclain RN Position: [facility] RN Member Role: Primary Care Nurse Name: Not on Staff, PCP Position: [facility] Physician (General Medicine) Member Role: PCP Name: Alisa Calix RN Position: [facility] SN RN Member Role: Primary Care Nurse Name: Mary Engle Position: [facility] ED TA [facility] Member Role: Assessment Technician Name: Tika Parson MD Position: [facility] ED Medicine MD Member Role: ED Attending Physician Address: Address: [address] [place] [address] [place] [address]- [place] Name: Ana Tavarez RN Position: [facility] ED RN W/OE and Tasks Member Role: Patient Care Provider Name: Kayla Shaver DO Position: [facility] Resident Member Role: ED Resident Address: Address: [address] [facility] [place] [address]- Care Team Related PersonsName: HARSHIL MAIER Address: home [address] [place] [address]
[2022-12-11 18:02] VITALS: BP 135/66; PULSE 67; RESP 18; TEMP 37.1; O2SAT 95
--- NOTE | 2022-12-11 22:08 | PHA.MEDREC ---
Pharmacy Consult ? Medication Reconciliation Pharmacy has completed the medication reconciliation.spoke with patient. med rec completed
--- NOTE | 2022-12-11 22:09 | PC.NURSE ---
PT DIFF STICK, MULTIPLE ATTEMPTS MADE. WILL ATTEMPT TO DRAW WITH US PLACED IV.
[2022-12-12 00:55] LABS: MANUAL DIFF FLAG NO
[2022-12-12 01:05] LABS: Basophils Absolute Auto 0.1 X10*3/uL (0.0-0.2); Basophils Percent Auto 0.6 % (0-2); Eosinophils Absolute Auto 0.6 X10*3/uL (0.0-0.4); Eosinophils Percent Auto 6.7 % (0-4); Hemoglobin 14.6 g/dl (14.0-18.0); Imm Gran Abs Auto 0.03 X10*3/uL (0.00-0.03); Imm Gran Pct Auto 0.3 % (0.0-0.4); Lymphocytes Absolute Auto 2.8 X10*3/uL (1.2-4.9); Lymphocytes Percent Auto 31.7 % (20-40); Mean Corpuscular HGB Conc 33.2 g/dl (31.0-36.0); Mean Corpuscular Hemoglobin 27.5 pg (27.0-33.0); Mean Platelet Volume 10.2 fL (9.4-12.4); Monocytes Absolute Auto 0.7 X10*3/uL (0.1-1.2); Monocytes Percent Auto 7.8 % (2-11); Neutrophils Absolute Auto 4.6 x10*3/uL (2.0-8.3); Neutrophils Percent Auto 52.9 % (45-73); Platelet Count 298 X10*3/uL (160-400); Red Cell Distribution Width 13.3 % (11.0-16.0); White Blood Count 8.8 X10*3/uL (4.8-10.8)
[2022-12-12 01:13] LABS: IDNOW Serial# 6674DD1D
[2022-12-12 01:14] LABS: COVID-19 Test Negative (Negative)
[2022-12-12 01:23] LABS: B Type Natriuretic Peptide 21 pg/mL (<100)
[2022-12-12 01:27] LABS: Alanine Aminotransferase 71 U/L (0-40); Alkaline Phosphatase 88 U/L (39-117); Anion Gap 12 (12-20); Aspartate Amino Transferase 70 U/L (5-37); Bilirubin Total 0.3 mg/dL (0.0-1.0); Blood Urea Nitrogen 13 mg/dL (9-16); C Reactive Protein 0.66 mg/dL (< or = 0.50); Calcium 9.7 mg/dL (8.4-10.2); Carbon Dioxide 29 mmol/L (22-29); Chloride 103 mmol/L (96-108); Creatinine Clr Calc Pharmacy 105.7; Estimated Glomerular Filt Rate > 60; Glucose Random 123 mg/dL (60-115); Magnesium 2.1 mg/dL (1.6-2.6); Potassium 4.3 mmol/L (3.3-5.1); Sodium 140 mmol/L (135-145); Total Protein 7.5 g/dL (6.5-8.0)
[2022-12-12 01:33] LABS: Erythrocyte Sedimentation Rate 4 MM/HR (0-15)
[2022-12-12] MEDS: cefEPime HCl 1 GM in 0.9 % Sodium Chloride 50 ML IV (02:03)
[2022-12-12 02:17] VITALS: BP 114/66; PULSE 57; RESP 16; TEMP 36.8; O2SAT 96
--- NOTE | 2022-12-12 02:25 | PC.NURSE ---
This global technical writer assumed care of this PT at this time. PT A&Ox4, reports bilateral hand pain. Swelling noted to bilateral hands. Scabs noted to left forearm. PT able to move all digits. PT has one IV in place with abx running at this time.
[2022-12-12] MEDS: metroNIDAZOLE/NS 500 MG/100 ML PIGGYBACK 100 MG IV ×2 (02:44→14:07)
[2022-12-12 03:14] VITALS: BP 108/54; PULSE 56; RESP 17; TEMP 36.7; O2SAT 95
--- NOTE | 2022-12-12 03:15 | MHC.EDTECH ---
pt is relaxing watching tv, vitals were taken and a drink was given
[2022-12-12 06:22] VITALS: BP 94/44; PULSE 55; RESP 17; TEMP 36.6; O2SAT 97
[2022-12-12 08:11] VITALS: BP 101/54; PULSE 50
[2022-12-12] MEDS: 0.9 % Sodium Chloride 1,000 ML 999 ML IVCONT ×2 (08:21→08:23)
--- NOTE | 2022-12-12 09:18 | PM.CNOR ---
History of Present Illness HPI Consult date: 12/12/22 Chief complaint: Cellulitis Narrative: Patient admitted to the medical service for bilat hand cellulitis, started on IV abx cefepine and vanco. He states he has had bilateral hand swelling for the last 2 months which will subside and then get worse. 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 Of note, patient was seen at [facility] on 12/10/2022, 2 days ago.? Patient was evaluated in the emergency room.? Patient was evaluated by Hand surgery who recommended antibiotics IV.? A CT scan of the hands did not show any evidence of osteomyelitis, but there was extensive skin thickening and subcutaneous edema without discrete abscess.? Patient is followed by infectious disease at [facility], while patient was in the emergency room, they started cefepime, vancomycin and Flagyl IV.? However, patient left the same day against medical advice.? Patient states that even with 1 dose of the above-mentioned antibiotics, his hand did improve.? However, there still pretty painful. MRI which was done at [facility] on December 10 shows no evidence of osteomyelitis or focal fluid collection, 3rd MCP joint effusion.? Dorsal soft tissue swelling is most significant at the level of the 3rd MCP joint Orthopedics was consulted for further recommendations Review of Systems Review of Systems: per HPI [facility] Past Medical History Medical History Hepatitis C IV drug user Social History Social History Alcohol intake: never Smoked in Last 30 Days: Yes Use of substances other than those prescribed or required for medical reasons: Yes Substance Use Type: Heroin Substance Use Frequency: Daily Advance Directives: No Advance Directives Information Provided: Yes Meds Allergies Allergy/AdvReac Type Severity Reaction Status Date / Time No Known Allergies Allergy Unverified 07/19/20 15:55 [No Known Allergies*] Active Medications: Current Medications Enoxaparin Sodium (Enoxaparin Sodium 40 Mg/0.4 Ml Syringe) 40 mg SUBCUT Q24H ANTONIO Sodium Chloride (Ns) 1,000 mls @ 999 mls/hr IVCONT .Q1H1M ANTONIO Stop: 12/12/22 10:15 Last Admin: 12/12/22 08:23 Dose: 999 mls/hr Cefepime HCl 2 gm/ Sodium (Chloride) 50 mls @ 100 mls/hr IV Q12H ANTONIO Metronidazole (Flagyl) 500 mg in 100 mls @ 100 mls/hr IV Q12H [facility] Vancomycin HCl 1,250 mg/ (Sodium Chloride) 250 mls @ 166.667 mls/hr IV Q12H [facility] Pharmacy Consult (Consult Rx Perform Med Rec) 1 each MISCELLANE ONCE PRN PRN Reason: Consult order Pharmacy Consult (Consult Rx Vancomycin Dosing) 1 each MISCELLANE DAILY PRN PRN Reason: Consult order Sodium Chloride (0.9 % Sodium Chloride Flush 3 Ml Syringe) 3 ml IVFLUSH QSHIFT [facility] Home Medications Medication Instructions Recorded Confirmed Last Taken Type methadone 10 mg tablet 90 mg PO DAILY 12/11/22 12/11/22 12/11/22 History Physical Exam Vital Signs: Vital Signs: Last Vital Signs Temp 97.9 F 12/12/22 06:22 Pulse 50 12/12/22 08:11 Resp 17 12/12/22 06:22 BP 101/54 L 12/12/22 08:11 Pulse Ox 97 12/12/22 06:22 O2 Del Method 12/12/22 06:22 BMI result Body Mass Index 27.6 Const: General: cooperative, healthy appearing and comfortable Extrem: Other: Bilat hands with diffuse swelling scabs from what he claims to be from picking Swelling is located over the dorsum of the hand No direct abscess formation No redness He is able to make a fist and full extend all digits No pain or swelling int he thenar eminence or deep web spaces of the hand No pain along the flexor tendons NVI. Results Labs 12/12/22 00:34 12/12/22 00:34 Labs: Abnormal lab results 12/12/22 12/12/22 Range/Units 00:34 00:34 Eos % (Auto) 6.7 H (0-4) % Eos # (Auto) 0.6 H (0.0-0.4) X10*3/uL Random Glucose 123 H (60-115) mg/dL AST 70 H (5-37) U/L ALT 71 H (0-40) U/L C-Reactive Protein 0.66 H (< or = 0.50) mg/dL H & H 12/12/22 Range/Units 00:34 Hgb 14.6 (14.0-18.0) g/dl Hct 44.0 (42.0-52.0) % All other labs normal. Assessment and Plan (1) Cellulitis of hand: Status: Acute (2) Bilateral hand swelling: Status: Acute Plan No surgical intervention warranted at this time recommend cont iv abx, ROM of the hand with elevation will continue to follow Time Spent With Patient Time: Total time managing care of this patient today ____ minutes. Procedures Date of Service Date of Service: 12/12/22
[2022-12-12] MEDS: Enoxaparin Sodium 40 MG/0.4 ML SYRINGE SUBCUT (09:19)
--- NOTE | 2022-12-12 09:25 | PC.NURSE ---
called methadone clinic in [place] and they last dosed him on 12/05 and gave 2 doses for the and , on the they were notified that he was at [facility], pt states that he got doses from [facility] and the last one was on 12/10/22, call placed to [place] and message left for RN production planning supervisor, no call back at this time, Shirlene RN from recovery said she will attempt to call, pt was sleeping w nad, easily woken, b/l hand swelling, medicated as ordered, Dr Lee stated to give 1 l ns instead of the ordered 2, 1 was discarded, 1st ns bolus still infusing, pt alert
--- NOTE | 2022-12-12 10:03 | MHC.RECOVRN ---
Spoke with inocente Hall RN on [facility] at [facility]. Pt last received 90 mg methadone on 12/10 at 0832. Verification form scanned to pharmacy. SUMA Pinedo, aware.
--- NOTE | 2022-12-12 10:39 | PHA.PROG ---
Admission Date/Time: December 12, 2022 08:45 Indication: Cellulitis, IVDU Weight in k.811 kg Adjusted body weight in K.8 kg [place] body weight in K.1 kg Obesity Dosing Indication % IBW: 119% Serum Creatinine - Last 168 Hours 12/12/22 12/12/22 00:34 00:34 Creatinine Cancelled 0.89 Estimated CrCl and GFR - Last 168 Hours 12/12/22 12/12/22 00:34 00:34 Estim Creat Clear Calc Cancelled 105.7 Estimated GFR Cancelled > 60 Vancomycin Loading Dose: 2000 mg Current Vancomycin Dosing Regimen: 1250 mg Q12H Date and Time for next Vancomycin Level to be drawn: 12/13 @ 1400 Pharmacist Comments on Vancomycin Plan: Patient received an adequate loading dose of vancomycin 2000 mg in ER 12/12 @ 0359 Maintenance dose vancomycin 1250 mg Q12H is scheduled to start at 12/12 @ 1600. Expected AUC 531 with a trough of 16.5. Level to be drawn prior to 4th dose Pharmacy will monitor renal function daily. Nimo Nelson PharmD Vancomycin dosing will take advantage of [employer] as a clinical decision support tool that uses Bayesian modeling to calculate individual patient's pharmacokinetic parameters and forecast the patient's drug concentration time course with the target goal AUC 24 range of 400 - 600 mg/L/hr.
[2022-12-12] MEDS: methADONE HCl 20 MG/2 ML ORAL.CONC 90 MG PO (11:18)
[2022-12-12 12:53] LABS: Amphetamine Screen Urine Not Detected (Not Detect); Barbiturates, Urine Not Detected (Not Detect); Benzodiazepines Screen Urine Not Detected (Not Detect); Cannabinoid Screen Urine Not Detected (Not Detect); Cocaine Screen Urine Not Detected (Not Detect); Fentanyl, urine POSITIVE (Not Detect); Opiate Screen Urine Not Detected (Not Detect); Phencyclidine Screen Urine Not Detected (Not Detect)
[2022-12-12] MEDS: cefEPime HCl 2 GM in 0.9 % Sodium Chloride 50 ML IV (13:37)
[2022-12-12 14:05] VITALS: BP 105/55; PULSE 45; RESP 16; TEMP 36.9; O2SAT 95
--- NOTE | 2022-12-12 15:54 | P.HPHOSP_ITS ---
History of Present Illness Date of Service: 12/12/22 Attending physician on admission: Peter Lee Chief Complaint: hand infection 52-year-old male with history of hep C untreated, history of IV drug use-came complaining of bilateral hand swelling .? Patient states that his hands have g radually become more swollen and painful.? after reviewing Ed documentation:patient was seen at [facility] ([facility] )on 12/10/2022, 2 days ago in the emergency room.? Patient was evaluated by Hand surgery who recommended antibiotics IV, CT scan was negative for osteomyelitis/abcess ?[facility], while patient was in the emergency room, they started cefepime, vancomycin and Flagyl IV-afterwrads patient left the same day against medical advice.? Patient states that even with 1 dose of the above-mentioned antibiotics, says his hand did improve but still has some swelling and painful. MRI which was done at [facility] on December 10 shows no evidence of osteomyelitis or focal fluid collection, 3rd MCP joint effusion.? Dorsal soft tissue swelling is most significant at the level of the 3rd MCP joint. Patient range of motion both and seems of fine, but has swelling and pain. No fever or leukocytosis Denies any new complaint of chest pain or shortness of breath or abdominal pain or fever or chills or nausea or vomiting Denies any cough Denies any weakness or numbness. Lab imaging EKG reviewed: No leukocytosis BMP seems fine, mild elevated lft crp:0.66 ,esr:4 no imaging studies currently except in hpi. Review of Systems Review of Systems: as above. [facility] Medical History Hepatitis C IV drug user Pertinent family history: Grandfather has diabetes Social History (Updated 12/12/22 @ 16:04 by Peter Lee MD) Household Members: Family Housing: House Do you presently have visiting nurse or other home services: No Alcohol intake: never Patient Tobacco Use Status: Current everyday Tobacco user Tobacco use type: Cigarette Cigarettes Per Day: 15 e-Cigarette/Vaping Use: Never Used Second Hand Smoke Exposure: No Substance Use Type: Heroin and IV Drugs Meds Allergies Allergy/AdvReac Type Severity Reaction Status Date / Time No Known Allergies Allergy Unverified 07/19/20 15:55 [No Known Allergies*] Active Medications: Current Medications Enoxaparin Sodium (Enoxaparin Sodium 40 Mg/0.4 Ml Syringe) 40 mg SUBCUT Q24H [facility] Last Admin: 12/12/22 09:19 Dose: 40 mg Cefepime HCl 2 gm/ Sodium (Chloride) 50 mls @ 100 mls/hr IV Q12H [facility] Last Infusion: 12/12/22 14:07 Dose: Infused Metronidazole (Flagyl) 500 mg in 100 mls @ 100 mls/hr IV Q12H [facility] Last Admin: 12/12/22 14:07 Dose: 100 mls/hr Vancomycin HCl 1,250 mg/ (Sodium Chloride) 250 mls @ 166.667 mls/hr IV Q12H [facility] Methadone HCl (Methadone Hcl 20 Mg/2 Ml Oral.Conc) 90 mg PO DAILY [facility] Last Admin: 12/12/22 11:18 Dose: 90 mg Pharmacy Consult (Consult Rx Perform Med Rec) 1 each MISCELLANE ONCE PRN PRN Reason: Consult order Pharmacy Consult (Consult Rx Vancomycin Dosing) 1 each MISCELLANE DAILY PRN PRN Reason: Consult order Sodium Chloride (0.9 % Sodium Chloride Flush 3 Ml Syringe) 3 ml IVFLUSH QSHIFT [facility] Home Medications Medication Instructions Recorded Confirmed Last Taken Type methadone 10 mg tablet 90 mg PO DAILY 12/11/22 12/11/22 12/11/22 History Physical Exam Vital Signs and Narrative: Vital Signs: Last Vital Signs Temp 98.5 F 12/12/22 14:05 Pulse 45 L 12/12/22 14:05 Resp 16 12/12/22 14:05 BP 105/55 L 12/12/22 14:05 Pulse Ox 95 12/12/22 14:05 O2 Del Method 12/12/22 14:05 BMI result Body Mass Index 27.6 Appearance: Alert.? Oriented X3.? not in distress.? Eyes: Pupils equal, round and reactive to light.? Sclera nonicteric.? ENT: Pharynx normal.? Moist mucous membranes. cvs: rrr, [id number] , no murmur res: clear to auscultation ,no rhonchii or wheezing abd: no rebound or guarding ,nt, bs present. ext pulses present , no cyanosis, hands:Bilat hands with diffuse swelling scabs ? picking,some erythema,Swelling is located over the dorsum of the hand No flacuatation could able to move hands fine. neuro: axo3 , nonfocal. Results Labs 12/12/22 00:34 12/12/22 00:34 Labs: Laboratory Results - last 24 hr 12/12/22 12/12/22 12/12/22 00:28 00:34 00:34 MCV 83.0 MCH 27.5 MCHC 33.2 RDW 13.3 Plt Count 298 MPV 10.2 Immature Gran % (Auto) 0.3 Neut % (Auto) 52.9 Lymph % (Auto) 31.7 Craven % (Auto) 7.8 Eos % (Auto) 6.7 H Baso % (Auto) 0.6 Lymph # (Auto) 2.8 Craven # (Auto) 0.7 Eos # (Auto) 0.6 H Baso # (Auto) 0.1 Abs Immat Gran (auto) 0.03 Absolute Neuts (auto) 4.6 Absolute Nucleated RBC 0.000 Nucleated RBC % (auto) 0.0 ESR Anion Gap Cancelled Estim Creat Clear Calc Cancelled Estimated GFR Cancelled Random Glucose Cancelled Lactic Acid Calcium Cancelled Magnesium Cancelled Total Bilirubin Cancelled AST Cancelled ALT Cancelled Alkaline Phosphatase Cancelled C-Reactive Protein B-Natriuretic Peptide Total Protein Cancelled Albumin Cancelled Urine Opiates Screen Urine Fentanyl Screen Ur Barbiturates Screen Ur Phencyclidine Scrn Ur Amphetamines Screen U Benzodiazepines Scrn Urine Cocaine Screen U Marijuana (THC) Screen COVID-19 (ÓSCAR) Negative COVID-19 Clin Com See Note 12/12/22 12/12/22 12/12/22 00:34 00:34 00:34 MCV MCH MCHC RDW Plt Count MPV Immature Gran % (Auto) Neut % (Auto) Lymph % (Auto) Craven % (Auto) Eos % (Auto) Baso % (Auto) Lymph # (Auto) Craven # (Auto) Eos # (Auto) Baso # (Auto) Abs Immat Gran (auto) Absolute Neuts (auto) Absolute Nucleated RBC Nucleated RBC % (auto) ESR 4 Anion Gap Estim Creat Clear Calc Estimated GFR Random Glucose Lactic Acid 1.0 Calcium Magnesium Total Bilirubin AST ALT Alkaline Phosphatase C-Reactive Protein B-Natriuretic Peptide 21 Total Protein Albumin Urine Opiates Screen Urine Fentanyl Screen Ur Barbiturates Screen Ur Phencyclidine Scrn Ur Amphetamines Screen U Benzodiazepines Scrn Urine Cocaine Screen U Marijuana (THC) Screen COVID-19 (ÓSCAR) COVID-19 Clin Com 12/12/22 12/12/22 00:34 11:56 MCV MCH MCHC RDW Plt Count MPV Immature Gran % (Auto) Neut % (Auto) Lymph % (Auto) Craven % (Auto) Eos % (Auto) Baso % (Auto) Lymph # (Auto) Craven # (Auto) Eos # (Auto) Baso # (Auto) Abs Immat Gran (auto) Absolute Neuts (auto) Absolute Nucleated RBC Nucleated RBC % (auto) ESR Anion Gap 12 Estim Creat Clear Calc 105.7 Estimated GFR > 60 Random Glucose 123 H Lactic Acid Calcium 9.7 Magnesium 2.1 Total Bilirubin 0.3 AST 70 H ALT 71 H Alkaline Phosphatase 88 C-Reactive Protein 0.66 H B-Natriuretic Peptide Total Protein 7.5 Albumin 4.0 Urine Opiates Screen Not Detected Urine Fentanyl Screen POSITIVE H Ur Barbiturates Screen Not Detected Ur Phencyclidine Scrn Not Detected Ur Amphetamines Screen Not Detected U Benzodiazepines Scrn Not Detected Urine Cocaine Screen Not Detected U Marijuana (THC) Screen Not Detected COVID-19 (ÓSCAR) COVID-19 Clin Com Assessment and Plan (1) Bilateral hand swelling: Status: Acute (2) Cellulitis of hand: Status: Acute (3) Smoker: Status: Acute (4) Substance abuse: Status: Acute Plan 52-year-old male with history of hep C untreated, history of IV drug use-came complaining of bilateral hand swelling . 1. possible cellulitis esr fine ,mild crp elevated, blood cultures pendin continue with vanco, cefepime, Flagyl. Vanco trough, monitor renal function electrolytes ortho and Id eval added 2. History of outpatient in hep C untreated: follow outpatient 3. substance abuse : continue methadone fentanyl positive in urine 4. hx of smoking nicotine patch dvt prophylax: s/c lovenox inpatient need : untreated cellulits -need IV antibiotics, renal function and vanco level monitoring. Time Spent With Patient Time: Total time managing care of this patient today ____ minutes. Quality Stroke Does the patient have a stroke diagnosis?: No VTE Prior VTE?: No VTE Risk Level:: Medical - moderate - high VTE Device Contraindication: N/A - Device Ordered VTE Drug Contraindication: N/A - Med Ordered
[2022-12-12] MEDS: vancomycin HCL 1,250 MG in 0.9 % Sodium Chloride 250 ML 166.67 MG IV (16:32)
[2022-12-12] MEDS: 0.9 % Sodium Chloride Flush 3 ML SYRINGE IVFLUSH ×2 (16:32→21:29)
[2022-12-12 20:00] VITALS: BP 112/55; PULSE 55; RESP 17; TEMP 37.1; O2SAT 95
--- NOTE | 2022-12-12 20:08 | PC.NURSE ---
This RN attempted to call nurse to nurse report x2. Med surge RN is not available at the moment. Patient to be transported to [facility]. Med surge RN to call for report when available.
[2022-12-12 21:03] VITALS: BMI 27.6
[2022-12-12] MEDS: Nicotine 14 MG PATCH.TD24 TRANSDERMA (23:01)
[2022-12-13] MEDS: cefEPime HCl 2 GM in 0.9 % Sodium Chloride 50 ML IV ×2 (01:14→13:25)
[2022-12-13] MEDS: metroNIDAZOLE/NS 500 MG/100 ML PIGGYBACK 100 MG IV ×2 (02:19→14:37)
[2022-12-13] MEDS: vancomycin HCL 1,250 MG in 0.9 % Sodium Chloride 250 ML 166.67 MG IV ×2 (03:33→15:59)
[2022-12-13 04:00] VITALS: BP 90/52; PULSE 53; RESP 18; TEMP 36.1; O2SAT 95
[2022-12-13 06:56] LABS: Creatinine Clr Calc Pharmacy 123.8; Estimated Glomerular Filt Rate > 60
[2022-12-13 07:40] VITALS: BP 114/66; PULSE 50; RESP 18; TEMP 36.7; O2SAT 98
[2022-12-13] MEDS: Nicotine 14 MG PATCH.TD24 TRANSDERMA (09:10)
[2022-12-13] MEDS: Enoxaparin Sodium 40 MG/0.4 ML SYRINGE SUBCUT (09:11)
[2022-12-13] MEDS: 0.9 % Sodium Chloride Flush 3 ML SYRINGE IVFLUSH ×2 (09:11→14:38)
[2022-12-13] MEDS: methADONE HCl 20 MG/2 ML ORAL.CONC 90 MG PO (09:11)
--- NOTE | 2022-12-13 09:48 | PM.PNORT ---
Subjective Subjective Date of Service: 12/13/22 Interval history: Patient resting in bed comfortably. No overnight events. Pain is well managed. Reports pain, swelling, and redness is improving since IV abx begun. No additional complaints. Physical Exam Vital Signs: Vital Signs: Last Vital Signs Temp 98.1 F 12/13/22 07:40 Pulse 50 12/13/22 07:40 Resp 18 12/13/22 07:40 BP 114/66 12/13/22 07:40 Pulse Ox 98 12/13/22 07:40 O2 Del Method 12/13/22 07:40 BMI result Body Mass Index 27.6 Const: General: cooperative, healthy appearing and no acute distress Resp: Effort & Inspection: normal respiratory effort and able to speak in complete sentences Cardio: Rate: regular rate Peripheral pulses: Peripheral pulses 2+ throughout GI: Palpation (GI): Soft to palpation Skin: Lesions: no lesions Rashes: no rashes Extrem: Other: Bilat hands with diffuse swelling scabs from what he claims to be from picking Swelling is located over the dorsum of the hand No direct abscess formation No redness He is able to make a fist and full extend all digits No pain or swelling int he thenar eminence or deep web spaces of the hand No pain along the flexor tendons NVI. Procedures Date of Service Date of Service: 12/13/22 Progress Note: A&P Assessment and plan (1) Substance abuse: Status: Acute (2) Smoker: Status: Acute (3) Bilateral hand swelling: Status: Acute (4) Cellulitis of hand: Status: Acute Plan Cont IV abx Cont pain managemed Gentle ROM of the hand No additional orthopedic intervention needed at this time Will continue to follow Time Spent With Patient Time: Total time managing care of this patient today ____ minutes. Quality Stroke Does the patient have a stroke diagnosis?: No VTE Prior VTE?: No VTE Risk Level:: Medical - moderate - high VTE Device Contraindication: N/A - Device Ordered VTE Drug Contraindication: N/A - Med Ordered
--- NOTE | 2022-12-13 13:11 | P.PNIM_ITS ---
Subjective Subjective Date of Service: 12/13/22 Interval History: hand infection Review of Systems swellin/painslowly improving encouraged to get oob Denies any fever or chills Physical Exam Vital Signs: Vital Signs: Last Vital Signs Temp 98.1 F 12/13/22 07:40 Pulse 50 12/13/22 07:40 Resp 18 12/13/22 07:40 BP 114/66 12/13/22 07:40 Pulse Ox 98 12/13/22 07:40 O2 Del Method 12/13/22 07:40 BMI result Body Mass Index 27.6 Appearance: Alert.? Oriented X3.? not in distress.? cvs: rrr, [id number] , no murmur res: clear to auscultation ,no rhonchii or wheezing abd: no rebound or guarding ,nt, bs present. ext pulses present , no cyanosis, hands:Bilat hands with diffuse swelling scabs ? picking,some erythema,Swelling is located over the dorsum of the hand No flacuatation could able to move hands fine. neuro: axo3 , nonfocal. Objective Data Active Medications Enoxaparin Sodium (Enoxaparin Sodium 40 Mg/0.4 Ml Syringe) 40 mg SUBCUT Q24H [facility] Last Admin: 12/13/22 09:11 Dose: 40 mg Documented By: RIYA Cefepime HCl 2 gm/ Sodium (Chloride) 50 mls @ 100 mls/hr IV Q12H [facility] Last Infusion: 12/13/22 02:00 Dose: 0 mls/hr Documented By: EDDIE Metronidazole (Flagyl) 500 mg in 100 mls @ 100 mls/hr IV Q12H [facility] Last Infusion: 12/13/22 03:20 Dose: 0 mls/hr Documented By: EDDIE Vancomycin HCl 1,250 mg/ (Sodium Chloride) 250 mls @ 166.667 mls/hr IV Q12H [facility] Last Infusion: 12/13/22 05:07 Dose: 0 mls/hr Documented By: EDDIE Methadone HCl (Methadone Hcl 20 Mg/2 Ml Oral.Conc) 90 mg PO DAILY [facility] Last Admin: 12/13/22 09:11 Dose: 90 mg Documented By: RIYA Nicotine (Nicotine 14 Mg Patch.Td24) 14 mg TRANSDERMA DAILY [facility] Last Admin: 12/13/22 09:10 Dose: 14 mg Documented By: RIYA Pharmacy Consult (Consult Rx Perform Med Rec) 1 each MISCELLANE ONCE PRN PRN Reason: Consult order Pharmacy Consult (Consult Rx Vancomycin Dosing) 1 each MISCELLANE DAILY PRN PRN Reason: Consult order Sodium Chloride (0.9 % Sodium Chloride Flush 3 Ml Syringe) 3 ml IVFLUSH QSHIFT [facility] Last Admin: 12/13/22 09:11 Dose: 3 ml Documented By: RIYA Labs 12/12/22 00:34 12/13/22 05:43 Labs: Laboratory Results - last 24 hr 12/13/22 05:43 Estim Creat Clear Calc 123.8 Estimated GFR > 60 Microbiology Microbiology Results: Microbiology 12/12/22 00:34 Blood Culture - Preliminary Blood - Venous No growth after 24 hours. 12/12/22 00:34 Blood Culture - Preliminary Blood - Venous No growth after 24 hours. Assessment and Plan (1) Substance abuse: Status: Acute (2) Smoker: Status: Acute (3) Bilateral hand swelling: Status: Acute (4) Cellulitis of hand: Status: Acute Plan 52-year-old male with history of hep C untreated, history of IV drug use-came complaining of bilateral hand swelling . 1. possible cellulitis esr fine ,mild crp elevated, blood cultures pendin continue with vanco, cefepime, Flagyl. Vanco trough, monitor renal function electrolytes ortho -no acute intervention ,continue antibiotics as above. Id eval added 2. History of outpatient in hep C untreated: follow outpatient 3. substance abuse : continue methadone fentanyl positive in urine 4. hx of smoking nicotine patch dvt prophylax: s/c? lovenox inpatient need : untreated cellulits -need IV antibiotics, renal function and vanco level monitoring. Time Spent With Patient Time: Total time managing care of this patient today ____ minutes. Quality Stroke Does the patient have a stroke diagnosis?: No VTE Prior VTE?: No VTE Risk Level:: Medical - moderate - high VTE Device Contraindication: N/A - Device Ordered VTE Drug Contraindication: N/A - Med Ordered
[2022-12-13 14:52] LABS: Vancomycin Trough 10.9 mcg/mL (10.0-20.0)
--- NOTE | 2022-12-13 14:56 | MHC.CM.PN ---
EMR REVIEWED, PT W/HAND CELLULITIS, BC'S NEG FIRST 24HRS, CM MET W/PT VIA [employer], PT REPORTS HE LIVES W/ AND CHILDREN, DENIES USE OF DME AND HAS [facility] IN [place] FOR [facility]. PT VERIFIES [employer] AND [employer], HCP IS ENRIQUETA MAIER [phone] AND COPY REQUESTED AND PT DOES NOT RECALL NAME OF PCP HOWEVER HE USES [facility]. ANTIC D/C HOME NO SERVICES W/ORAL ABX AND PT WILL SELF TRANSPORT CAR IS IN C LOT.
[2022-12-13 15:27] VITALS: BP 133/62; PULSE 78; RESP 18; TEMP 37; O2SAT 97
[2022-12-13 20:00] VITALS: BP 129/62; PULSE 58; RESP 19; TEMP 37; O2SAT 99
[2022-12-14] MEDS: cefEPime HCl 2 GM in 0.9 % Sodium Chloride 50 ML IV ×2 (01:39→13:54)
[2022-12-14] MEDS: metroNIDAZOLE/NS 500 MG/100 ML PIGGYBACK 100 MG IV ×2 (03:19→14:26)
[2022-12-14 03:52] VITALS: BP 93/53; PULSE 87; RESP 20; TEMP 37.1; O2SAT 96
[2022-12-14] MEDS: vancomycin HCL 1,250 MG in 0.9 % Sodium Chloride 250 ML 166.67 MG IV ×2 (05:17→15:59)
[2022-12-14 06:51] LABS: Creatinine Clr Calc Pharmacy 120.6; Estimated Glomerular Filt Rate > 60
[2022-12-14 08:50] VITALS: BP 128/67; PULSE 60; RESP 16; TEMP 36.4; O2SAT 96
[2022-12-14] MEDS: Enoxaparin Sodium 40 MG/0.4 ML SYRINGE SUBCUT (08:51)
[2022-12-14] MEDS: methADONE HCl 20 MG/2 ML ORAL.CONC 90 MG PO (08:52)
[2022-12-14] MEDS: 0.9 % Sodium Chloride Flush 3 ML SYRINGE IVFLUSH ×3 (08:52→20:52)
[2022-12-14] MEDS: Nicotine 14 MG PATCH.TD24 TRANSDERMA (08:52)
--- NOTE | 2022-12-14 09:29 | PM.PNORT ---
Subjective Subjective Date of Service: 12/14/22 Interval history: Patient resting in bed comfortably. No overnight events. Pain is well managed. Reports pain, swelling, and reports continued improvement of redness and pain since beginning IV abx. No additional complaints. Physical Exam Vital Signs: Vital Signs: Last Vital Signs Temp 97.5 F 12/14/22 08:50 Pulse 60 12/14/22 08:50 Resp 16 12/14/22 08:50 BP 128/67 12/14/22 08:50 Pulse Ox 96 12/14/22 08:50 O2 Del Method 12/14/22 08:50 BMI result Body Mass Index 27.6 Const: General: cooperative, healthy appearing and no acute distress Resp: Effort & Inspection: normal respiratory effort and able to speak in complete sentences Cardio: Rate: regular rate Peripheral pulses: Peripheral pulses 2+ throughout GI: Palpation (GI): Soft to palpation Skin: Lesions: no lesions Rashes: no rashes Extrem: Other: Bilat hands with diffuse swelling scabs from what he claims to be from picking Swelling is located over the dorsum of the hand No direct abscess formation He is able to make a fist and full extend all digits No pain or swelling in the thenar eminence or deep web spaces of the hand No pain along the flexor tendons NVI. Procedures Date of Service Date of Service: 12/14/22 Progress Note: A&P Assessment and plan (1) Substance abuse: Status: Acute (2) Smoker: Status: Acute (3) Bilateral hand swelling: Status: Acute (4) Cellulitis of hand: Status: Acute Plan Cont abx. Likely able to switch to oral, will defer to medicine to transition when appropriate. Cont pain management as appropriate Gentle ROM of the hand No additional orthopedic intervention needed at this time No abscess formation Time Spent With Patient Time: Total time managing care of this patient today ____ minutes. Quality Stroke Does the patient have a stroke diagnosis?: No VTE Prior VTE?: No VTE Risk Level:: Medical - moderate - high VTE Device Contraindication: N/A - Device Ordered VTE Drug Contraindication: N/A - Med Ordered
--- NOTE | 2022-12-14 09:30 | HO.PM.IMPN ---
Subjective Subjective Date of Service: 12/15/22 Interval History: hand infection Review of Systems swellin/painslowly improving encouraged to get oob Denies any fever or chills Physical Exam Vital Signs: Vital Signs: Last Vital Signs Temp 97.5 F 12/14/22 08:50 Pulse 60 12/14/22 08:50 Resp 16 12/14/22 08:50 BP 128/67 12/14/22 08:50 Pulse Ox 96 12/14/22 08:50 O2 Del Method 12/14/22 08:50 BMI result Body Mass Index 27.6 Appearance: Alert.? Oriented X3.? not in distress.? cvs: rrr, [id number] , no murmur res: clear to auscultation ,no rhonchii or wheezing abd: no rebound or guarding ,nt, bs present. ext pulses present , no cyanosis, hands:Bilat hands with diffuse swelling scabs ? picking,some erythema,Swelling is located over the dorsum of the hand. No flacuatation could able to move hands fine. neuro: axo3 , nonfocal. Objective Data Active Medications Enoxaparin Sodium (Enoxaparin Sodium 40 Mg/0.4 Ml Syringe) 40 mg SUBCUT Q24H [facility] Last Admin: 12/14/22 08:51 Dose: 40 mg Documented By: RIYA Cefepime HCl 2 gm/ Sodium (Chloride) 50 mls @ 100 mls/hr IV Q12H [facility] Last Infusion: 12/14/22 02:14 Dose: 0 mls/hr Documented By: SARAH Metronidazole (Flagyl) 500 mg in 100 mls @ 100 mls/hr IV Q12H [facility] Last Infusion: 12/14/22 06:14 Dose: 0 mls/hr Documented By: SARAH Vancomycin HCl 1,250 mg/ (Sodium Chloride) 250 mls @ 166.667 mls/hr IV Q12H [facility] Last Infusion: 12/14/22 06:57 Dose: 0 mls/hr Documented By: SARAH Methadone HCl (Methadone Hcl 20 Mg/2 Ml Oral.Conc) 90 mg PO DAILY [facility] Last Admin: 12/14/22 08:52 Dose: 90 mg Documented By: RIYA Nicotine (Nicotine 14 Mg Patch.Td24) 14 mg TRANSDERMA DAILY [facility] Last Admin: 12/14/22 08:52 Dose: 14 mg Documented By: RIYA Pharmacy Consult (Consult Rx Perform Med Rec) 1 each MISCELLANE ONCE PRN PRN Reason: Consult order Pharmacy Consult (Consult Rx Vancomycin Dosing) 1 each MISCELLANE DAILY PRN PRN Reason: Consult order Sodium Chloride (0.9 % Sodium Chloride Flush 3 Ml Syringe) 3 ml IVFLUSH QSHIFT [facility] Last Admin: 12/14/22 08:52 Dose: 3 ml Documented By: RIYA Labs 12/12/22 00:34 12/14/22 05:49 Labs: Laboratory Results - last 24 hr 12/13/22 12/14/22 14:08 05:49 Estim Creat Clear Calc 120.6 Estimated GFR > 60 Vancomycin Trough 10.9 Microbiology Microbiology Results: Microbiology 12/12/22 00:34 Blood Culture - Preliminary Blood - Venous No growth after 48 hours. 12/12/22 00:34 Blood Culture - Preliminary Blood - Venous No growth after 48 hours. Assessment and Plan (1) Cellulitis of hand: Status: Acute (2) Bilateral hand swelling: Status: Acute Plan 52-year-old male with history of hep C untreated, history of IV drug use-came complaining of bilateral hand swelling . 1. possible cellulitis esr fine ,mild crp elevated, blood cultures pendin continue with vanco, cefepime, Flagyl. Vanco trough is 13.3, monitor renal function electrolytes ortho -no acute intervention ,continue antibiotics as above. Id eval added 2. History of outpatient in hep C untreated: follow outpatient 3. substance abuse : continue methadone fentanyl positive in urine 4. hx of smoking nicotine patch dvt prophylax: s/c? lovenox inpatient need : untreated cellulits -need IV antibiotics, renal function and vanco level monitoring. Time Spent With Patient Time: Total time managing care of this patient today ____ minutes. Quality Stroke Does the patient have a stroke diagnosis?: No VTE Prior VTE?: No VTE Risk Level:: Medical - moderate - high VTE Device Contraindication: N/A - Device Ordered VTE Drug Contraindication: N/A - Med Ordered
[2022-12-14 14:37] VITALS: BP 107/60; PULSE 75; RESP 16; TEMP 36.4; O2SAT 92
[2022-12-14 15:16] LABS: Vancomycin Random 13.3 mcg/mL (15-20)
[2022-12-14] MEDS: Doxycycline Monohydrate 100 MG CAPSULE PO ×2 (16:00→20:50)
[2022-12-14] MEDS: Amoxicillin/Potassium Clav 875 MG TABLET PO ×2 (16:00→20:50)
[2022-12-14 19:38] VITALS: BP 138/81; PULSE 72; RESP 18; TEMP 36.8; O2SAT 98
[2022-12-15 03:31] VITALS: BP 117/59; PULSE 57; RESP 18; TEMP 36.3; O2SAT 99
[2022-12-15 03:36] VITALS: BP 141/65; PULSE 70; RESP 18; TEMP 36.1; O2SAT 95
[2022-12-15] MEDS: vancomycin HCL 1,250 MG in 0.9 % Sodium Chloride 250 ML 166.67 MG IV (05:08)
[2022-12-15 06:18] LABS: Creatinine Clr Calc Pharmacy 136.4; Estimated Glomerular Filt Rate > 60
[2022-12-15 08:00] VITALS: BP 110/50; PULSE 55; RESP 18; TEMP 36.4; O2SAT 96
[2022-12-15] MEDS: 0.9 % Sodium Chloride Flush 3 ML SYRINGE IVFLUSH (09:16)
[2022-12-15] MEDS: Nicotine 14 MG PATCH.TD24 TRANSDERMA (09:17)
[2022-12-15] MEDS: methADONE HCl 20 MG/2 ML ORAL.CONC 90 MG PO (09:17)
[2022-12-15] MEDS: Doxycycline Monohydrate 100 MG CAPSULE PO (09:18)
[2022-12-15] MEDS: Amoxicillin/Potassium Clav 875 MG TABLET PO (09:18)
[2022-12-15] MEDS: Enoxaparin Sodium 40 MG/0.4 ML SYRINGE SUBCUT (09:18)
--- NOTE | 2022-12-15 10:57 | P.DS_ITS ---
DS: Providers Provider Date of Service: 12/15/22 Date of admission: 12/12/22 08:45 Primary care physician: Unknown Physician Consults: 12/12/22 08:45 Consult to Orthopedics Routine Consulting Provider: Terri Moe Reason for consultation: hands cellulitis/ivdu Has provider been notified: No 12/14/22 14:44 Consult to Infectious Diseases Routine Consulting Provider: Beatrice Garner Reason for consultation: hand cellulitis Has provider been notified: No DS: Diagnosis Discharge Diagnosis (1) Substance abuse: Status: Acute (2) Smoker: Status: Acute (3) Bilateral hand swelling: Status: Acute (4) Cellulitis of hand: Status: Acute DS: Summary Hospital Course Hospital Course: 52-year-old male with history of hep C untreated, history of IV drug use-came complaining of bilateral hand swelling .? Patient states that his hands have gradually become more swollen and painful.?? after reviewing Ed documentation:patient was seen at [facility] ([facility]on 12/10/2022, 2 days ago in the emergency room.? Patient was evaluated by Hand surgery who recommended antibiotics IV, CT scan was negative for osteomyelitis/abcess ?[facility], while patient was in the emergency room, they started cefepime, vancomycin and Flagyl IV-afterwrads? patient left the same day against medical advice.? Patient states that even with 1 dose of the above-mentioned antibiotics, says his hand did improve but still has some swelling and painful. MRI which was done at [facility] on December 10 shows no evidence of osteomyelitis or focal fluid collection, 3rd MCP joint effusion.? Dorsal soft tissue swelling is most significant at the level of the 3rd MCP joint. Patient range of motion both and seems of fine, but has swelling and pain. No fever or leukocytosis Denies any new complaint of chest pain or shortness of breath or abdominal pain or fever or chills or nausea or vomiting Denies any cough Denies any weakness or numbness. Lab imaging EKG reviewed: No leukocytosis BMP seems fine, mild? elevated lft crp:0.66 ,esr:4 no imaging studies currently except in hpi. hospital course: Patient admitted for bilateral hand cellulitis, IV drug user history: Started on IV antibiotics( iv vanco and zosyn)-seen by hand surgery -cellulitis seems to be improved significantly going home with p.o. antibiotics. Patient has no leukocytosis or fever or any pains ,range of motion in the hands is intact. Please complete the course of antibiotics. Patient says that he has history of untreated hepatitisC: Patient wants to do please management out patiently . Plan: Complete the course of antibiotics. Strongly advised to abstain from drug use. Hepatitis C management out patiently Above management discussed the patient in detail length in the stent in agreement with the plan, time spent 50 minutes. Time Spent with Patient Time attestation: Total time managing care of this patient today ____ minutes. Discharge coordination time: Greater than 30 minutes Quality: Safe Use of Opioids Does Pt have an Active Cancer Diagnosis on the Problem List?: No Quality: Stroke Does the patient have a stroke diagnosis?: No Physical Exam Vital Signs: Vital Signs: Last Vital Signs Temp 97.5 F 12/15/22 08:00 Pulse 55 12/15/22 08:00 Resp 18 12/15/22 08:00 BP 110/50 L 12/15/22 08:00 Pulse Ox 96 12/15/22 08:00 O2 Del Method 12/15/22 08:00 BMI result Body Mass Index 27.6 Appearance: Alert.? Oriented X3.? not in distress.? cvs: rrr, [id number] , no murmur res: clear to auscultation ,no rhonchii or wheezing abd: no rebound or guarding ,nt, bs present. ext pulses present , no cyanosis, hands: Erythema and swelling improved significantly. No flacuatation could able to move hands fine. neuro: axo3 , nonfocal. DS: Data Data Completed and Pending Labs on day of discharge: Laboratory Results - last 24 hr 12/14/22 12/15/22 14:26 05:57 Creatinine 0.69 Estim Creat Clear Calc 136.4 Estimated GFR > 60 Random Vancomycin 13.3 L Preliminary micro results at discharge 12/12/22 00:34 Blood Culture - Preliminary Blood - Venous No growth after 48 hours. 12/12/22 00:34 Blood Culture - Preliminary Blood - Venous No growth after 48 hours. Discharge Plan Discharge Anticipated Discharge Date/Time: 12/15/22 10:53 Patient Disposition: Home, Self-Care Discharge Diagnosis: b/l upper extremity cellulitis Referrals: Physician,Unknown J [Primary Care Provider] - 1 Week Discharge Medications: New amoxicillin-pot clavulanate 875-125 mg Tablet 875 mg PO BID Qty: 20 0RF doxycycline monohydrate 100 mg Capsule 100 mg PO BID Qty: 20 0RF Continued methadone 10 mg Tablet 90 mg PO DAILY Discharge Orders: Discharge Order (Routine); Ordered 12/15/22 Ordered By: Peter Lee Diet: Advance to usual diet Activity on Discharge: As tolerated Stand Alone Forms: Patient Portal Discharge page Care Plan Goals: Patient admitted for bilateral hand cellulitis, IV drug user history: Started on IV antibiotics-seems to be improved significantly going home with p.o. antibiotics. Please complete the course of antibiotics. Patient says that he has history of untreated hepatitisC: Patient wants to do please management out patiently . Health Concerns: As above. Plan of Treatment: As above. Assessment: As above.
--- NOTE | 2022-12-15 11:19 | MHC.CM.PN ---
DP: PT HAS BEEN MEDICALLY CLEARED FOR DC HOME, NO SERVICES. RN AWARE. PT HAS OWN RIDE HOME, CAR IN LOT.
== END 2022-12-15 12:00 | disposition home or self-care (01) | DRG 383 ==
LOC: HO.ED 12-12 02:16 → HO.EDOVER 12-12 08:51 → HO.S3 12-12 19:02
PROVIDERS: Physician Assistant; Admitting Provider Internal Medicine; Emergency Provider Emergency Medicine; Visit Provider Internal Medicine
DX: L03.114 Cellulitis of left upper limb (principal); B19.20 Unspecified viral hepatitis C without hepatic coma; F11.20 Opioid dependence, uncomplicated; L03.113 Cellulitis of right upper limb; F17.210 Nicotine dependence, cigarettes, uncomplicated; Z71.6 Tobacco abuse counseling; Z20.822 Contact with and (suspected) exposure to COVID-19
CPT/HCPCS: 36415; 80053; 80202; 80307; 82565; 83605; 83735; 83880; 85025; 85652; 86140; 87040; 87635; 99221; 99285; J0692; J1650; J3370; J3371

== ENCOUNTER 2024-12-15 10:23 | Emergency (ER) | payer OTHER, SELFPAY ==
--- OUTSIDE RECORDS SUMMARY | 2024-12-15 14:53 | XMS_ITS | Clinical Summary ---
Author Organization [facility] ity Address [address] [place] [address] Care Team Providers Care Philosophy Instructor Name Role Phone Marlena Lozano Primary Care Provider Social History Tobacco Use Types Packs/Day Years Used Date Smoking Tobacco: Never Assessed Sex and Gender Information Value Date Recorded Sex Assigned at Not on file Legal Sex Male 11:35 PM EST Gender Identity Not on file Sexual Orientation Not on file Plan of Treatment Health Maintenance Due Date Last Done Comments DTaP,Tdap,and Td Vaccines (1 - Tdap) 1991 Hepatitis B Vaccines (1 of 3 - 19+ 3-dose series) 1991 Zoster Vaccines (1 of 2) 2022 Cholesterol Screening (Lipid Panel) 05/31/2024 Colorectal Cancer Screening: Colonoscopy 05/31/2024 Depression Screening 05/31/2024 HIV Screening 05/31/2024 Hepatitis C Screening 05/31/2024 Social Influencers of Health Screening 05/31/2024 COVID-19 Vaccine (1 - 2023-2 5 season) 2024 Influenza Vaccine (#1) 2024 HIB Vaccines Aged Out No longer eligi ble based on patient's age to complete this topic HPV Vaccines Aged Out No longer eligi ble based on patient's age to complete this topic Hepatitis A Vaccines Aged Out No long er eligible based on patient's age to complete this topic IPV Vaccines Aged Out No longer eligi ble based on patient's age to complete this topic MMR Vaccines Aged Out No longer eligi ble based on patient's age to complete this topic Meningococcal ACWY Vaccine Aged Out N o longer eligible based on patient's age to complete this topic Pneumococcal Vaccine: Pediat rics (0 to 5 Years) and At-Risk Patients (6 to 64 Years) Aged Out No longer eligible b ased on patient's age to complete this topic RSV Immunization Patients Un angela 20 months Aged Out No longer eligible b ased on patient's age to complete this topic Varicella Vaccines Aged Out No longer eligible based on patient's age to complete this topic Care Teams Philosophy Instructor Relationship Specialty Start Date End Date Marlena Lozano PCP - General 02/06/23
--- OUTSIDE RECORDS SUMMARY | 2024-12-15 14:53 | XMS_ITS | Continuity of Care Document ---
Author Organization [facility] al Address [address] [place] [address]- Care Team Providers Care Humanities Department Chair Name Role Phone Jesús Soler NP, Marlena Primary Care Physician Encounter [facility] Date(s): 12/03/24 - 12/03/[address] [address]- Discharge Disposition: A-D/C Home Attending Physician: Pieter Canales MD Admitting Physician: Pieter Canales MD Referring Physician: Not on Staff, Referring MD Encounter Type: Disch ES Allergies, Adverse Reactions, Alerts No Known Allergies Immunizations Given and Recorded Vaccine Date Status Refusal Reason influenza virus vaccine, inactivated 1 10/27/22 Gi lokesh SARS-CoV-2 (COVID-19) mRNA-1273 vaccine 10/30/21 R ecorded SARS-CoV-2 (COVID-19) Ad26 vaccine 06/05/21 Record ed 1Early/Late Reason: Early/Late Reason: Patient Refused Medications methadone 10 mg/5 mL oral solution 50 mL = 100 mg, By Mouth, Daily, 0 Refills, Maintenance, 10/29/22 11:32:00 AM EST, Solution, Partial fill upon patient request if the prescription is for a schedule II opioid drug. Start Date: 10/29/22 Status: Ordered Repeat number: 1 Problem List Condition Confirmation Course Effective Dates Status Health St atus Informant Cellulitis of upper limb 1 Confirmed 04/28/23 Active 1Outside Source Comment: Overview: : seen in ED for injection of heroin into open wounds again. He was sent home with abx 03/16/23: seen dr benavidez, c/w TAC 0.1% topical cream, decrease to QD PRN flares, avoid picking wounds. rest examined lesions benign and no treatment warranted. F/U in 2 months Results Radiology Reports * Exam Date Time Procedure Performing Provider Status 12/03/24 11:39 AM Chest 2 Views Frontal and Lat Gayathri Kahn; Auth (Verified) Notes: (Chest 2 Views Frontal and Lat) Reason For Exam: chest pain;Other: RESULT: Chest 2 Views Frontal and Lat Chest 2 Views Frontal and Lat Hx of Present Illness: Chest pain that radiates to left side of chest and down left side of body. Pt reports dizziness. Denies N V, but endorsing SOB.; Reason: Other:; chest pain; Clinical Question(s): CHF; Order Comment: 12 03 2024 11:25:51 EST: not ready COMPARISON: 10/25/2022 FINDINGS: LINES AND TUBES: None. LUNGS AND PLEURA: Clear lungs. Normal pulmonary vascularity. No pleural effusion. No pneumothorax. HEART, MEDIASTINUM AND MARSHALL: Heart is normal in size. Normal mediastinal and hilar contour. BONES AND SOFT TISSUES: No acute abnormality. IMPRESSION: No acute abnormality. WSN: [id number] Ordering Physician: Pieter Canales Dictated By: Chanelle Villegas MD Dictated Date/Time: 12/03/24 12:05 p Reviewed By: Chanelle Villegas MD Signed By: Chanelle Villegas MD Signed Date/Time: 12/03/24 12:05 pm Transcribed By: TITO Transcribed Date/Time: 12/03/24 12:05 pm Vital Signs Most recent to oldest [Reference Range]: 1 2 Height 178 cm (12/03/24 2:09 PM) 178 cm (12/03/24 10:33 AM) Weight 73.4 kg (12/03/24 2:09 PM) 73.4 kg (12/03/24 10:33 AM) Oxygen Saturation [94-100 %] 97 % (12/03/24 2:09 PM) 98 % (12/03/24 10:33 AM) Pulse Rate [55-90 bpm] 63 bpm (12/03/24 2:09 PM) 63 bpm (12/03/24 10:33 AM) Body Mass Index [18.5-24.99 kg/m2] 23.17 kg/m2 (12/03/24 2:09 PM) Blood Pressure [90-138/55-84 mm Hg] 117/ 73mm Hg (12/03/24 2:09 PM) 133/77mm Hg (12/03/24 10:33 AM) Respiratory Rate [16-30 br/min] 18 br/mi n (12/03/24 2:09 PM) 18 br/min (12/03/24 10:33 AM) Temperature [96.8-100.4 DegF] 98.9 DegF (12/03/24 10:33 AM) Mode of Delivery (Oxygen) Room air (12/03/24 2:09 PM) Room air (12/03/24 10:33 AM) Blood pressure sites Arm, left (12/03/24 2:09 PM) Arm, left (12/03/24 10:33 AM) Temperature Route Temporal (12/03/24 10:33 AM) Dry Weight 73.4 kg (12/03/24 2:09 PM) 73.4 kg (12/03/24 10:33 AM) Weight Obtained Via Standing scale (12/03/24 10:33 AM) Social History Social History Type Response Smoking Status Former smoker, quit more than 30 days ago entered on: 12/03/24 Sex Sex Representation Male (finding) Note * Parker LIZ, Pieter Sky: PERFORM Event Display: Patient Education Leaflets Authored Date: [id number] Uncertain Causes of Chest Pain ?? [id number] Uncertain Causes of Chest Pain Chest pain can happen for a number of reasons. Sometimes the cause can't be found. If you've been checked by your health care provider and your??condition does not seem serious, and if your pain doesnot appear to be coming from your heart, your provider may recommend closely watching for any symptoms. Sometimes the signs of a serious problem take more time to appear. Many problems not related toyour heart can cause chest pain, such as: ??? Musculoskeletal problems. These include costochondritis (an inflammation of the tissues around the ribs that can occur from trauma or overuse injuries) and a strain of the chest wall muscles. ???Respiratory problems. These include pneumonia, collapsed lung (pneumothorax), and inflammation of the lining of the chest and lungs (pleurisy). ??? Gastrointestinal problems. These include esophagealreflux, heartburn, ulcers, and gallbladder disease. ??? Anxiety and panic disorders. ??? Nerve compression and inflammation. ??? Rare problems, such as aortic aneurysm or aortic dissection (a swelling of the large artery coming out of the heart or a tear in the wall of the artery), and pulmonary embolism (a blood clot in the lungs). Home care After your visit, make sure to: ??? Rest today, and stay away from strenuous activity. ??? Take anyprescribed medicine as directed. ??? Be aware of any chest pain that comes back, and notice any changes. ?? Follow-up care Follow up with your health care provider if you don't start to feel better within 24 hours, or as advised. ?? Call 911 Call 911 if you have: ??? A change in the type of pain. It may feel different, become more severe, last longer, or begin to spread into your shoulder, arm, neck, jaw, or back. ??? Shortness of breathor increased pain with breathing. ??? Weakness, dizziness, or fainting. ??? A rapid heartbeat. ??? A crushing feeling in your chest. ??? Coughing up more than a small amount of blood. ?? When to get medical advice Call your health care provider or get medical care right away if you have: ??? A cough with dark colored sputum (phlegm) or small amount of blood. ??? A fever of 100.4??F??(38??C) or higher, or as directed by your provider. ??? Swelling, pain, or redness in one leg. ?? Last Reviewed Date: 2024 ?? [id number] [employer]. All rights reserved. This information is not intended as a substitute for professional medical care. Always follow your healthcare professional's instructions. ?? Patient Care team information Care Team Personnel Name: Batsheva Kyle RN Position: [facility] RN Member Role: Primary Care Nurse Name: Marlena Lozano NP Position: Reference Physician Member Role: PCP Address: [address] [place] [address] Telecom: Name: Mamie Christiansen RN Position: [facility] W/ Renea Member Role: Primary Care Nurse Name: Shaista Anderson RN Position: [facility] RN Member Role: Primary Care Nurse Name: Jaime De La Vega RN Position: [facility] RN Supv Member Role: Primary Care Nurse Name: Alisa Calix RN Position: [facility]ICK RN Member Role: Primary Care Nurse Care Team Related Persons Name: HARSHIL MAIER Insurance Providers Guarantor name: CARLOTTA MAIER Health Plan Information #: 1 Payer: [employer] FAC Member Number: [id number] Policy Number: NA Group Number: NA Health Plan Information #: 2 Payer: [employer] Member Number: [id number] Policy Number: NA Group Number: NA
--- OUTSIDE RECORDS SUMMARY | 2024-12-15 14:53 | XMS_ITS | Clinical Summary ---
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 Social History Tobacco Use Types Packs/Day Years Used Date Smoking Tobacco: Former Cigarettes Smokeless Tobacco: Current Tobacco Cessation:Ready to Q uit: Not Asked; Counseling Given: Not Answered Alcohol Use Standard Drinks/Week Comments Not Currently 0 (1 standard drink = 0.6 oz pur e alcohol) Sex and Gender Information Value Date Recorded Sex Assigned at Male 11/10/2023 11:51 AM EST Legal Sex Male 10:55 AM EDT Gender Identity Male 11/10/2023 11:51 AM EST Sexual Orientation Straight 11/10/2023 11 :51 AM EST Last Filed Vital Signs Vital Sign Reading Time Taken Comments Blood Pressure 130/80 11/27/2023 3:38 PM EST Pulse - - Temperature - - Respiratory Rate - - Oxygen Saturation - - Inhaled Oxygen Concentration - - Weight - - Height - - Body Mass Index - - Plan of Treatment Health Maintenance Due Date Last Done Comments Anal Pap 1972 CT Colonography 1972 Colonoscopy 1972 Colorectal Cancer Screening 1972 Dental Prophylaxis 1972 Dental X-Ray: Bitewings 1972 Depression Screening 1972 FIT DNA/Cologuard 1972 FIT 1972 FOBT 1972 HIV Screening 1972 Lipid Panel 1972 SDOH Screening 1972 Sigmoidoscopy 1972 Alcohol/Substance Use Screening 1984 Family Planning (PISQ) 1987 Hepatitis A Vaccines (1 of 2 - Risk 2-dose series) 1991 Hepatitis B Vaccines (2 of 3 - 19+ 3-dose series) 03/16/2017 02/16/2017 Pneumococcal Vaccine: 50+ Years (1 of 1 - PCV) 2022 Zoster Vaccines (1 of 2) 2022 Dental Oral Exam 05/28/2024 11/27/2023 COVID-19 Vaccine (3 - 2023-2 5 season) 2024 10/30/2021, 06/05/2021 Influenza Vaccine (#1) 2024 , 10/30/2021 Tobacco Screening 11/27/2024 11/27/2023 Dental X-Ray: Full Mouth 11/28/2026 11/27/2023 DTaP/Tdap/Td Vaccines (3 - T d or Tdap) 04/27/2029 04/27/2019, 01/31/2016 RSV Patients and Patients Aged 60 years or older (1 - 1-dose 75+ series) 2047 HIB Vaccines Aged Out No longer eligi ble based on patient's age to complete this topic HPV Vaccines Aged Out No longer eligi ble based on patient's age to complete this topic IPV Vaccines Aged Out No longer eligi ble based on patient's age to complete this topic Meningococcal Vaccine Aged Out No osman irma eligible based on patient's age to complete this topic Pneumococcal Vaccine: Pediatrics (0 to 5 Years) and At-Risk Patients (6 to 49) Years) Aged Out No longer eligible b ased on patient's age to complete this topic RSV under 20 months Aged Out No longe r eligible based on patient's age to complete this topic Rotavirus Vaccines Aged Out No longer eligible based on patient's age to complete this topic Procedures Procedure Name Priority Date/Time Associated Diagnosis Comments PANORAMIC RADIOGRAPHIC IMAGE Routine 11/27/2023 3:00 PM EST COMPREHENSIVE ORAL EVALUATION - NEW OR ESTABLISHED PATIENT Routine 11/27/2023 3:00 PM EST from Last 3 Months or Most Recently Relevant to Health Maintenance Insurance [facility] [place] STAND ADULT
--- OUTSIDE RECORDS SUMMARY | 2024-12-15 14:53 | XMS_ITS | Encounter Summary ---
Author Organization [facility] Address [address] [place] [address] Care Team Providers Care Assistant Manager Trainee Name Role Phone Marlena Coronel NP Primary Care Provider [phone] Reason for Visit * Reason Comments Care Coordination Chw chart review Encounter Details Date Type Department Care Team ([facility] st Contact Info) Description 12/09/2024 Interim Notes [facility] [address] [place] [id number] Ynes Fong [address] [place] [address] Social History Tobacco Use Types Packs/Day Years Used Date Smoking Tobacco: Every Day Cigarettes 0.5 27 Smokeless Tobacco: Never Alcohol Use Standard Drinks/Week Comments No 0 (1 standard drink = 0.6 oz pur e alcohol) Social Connections Answer Date Recorded Connectedness 1 06/21/2024 Financial Resource Strain Answer Date R ecorded Financial Resource Strain 2 2023 Stress Answer Date Recorded Stress 2 06/21/2024 Physical Activity Answer Date Recorded Physical Activity 0 06/26/2019 Food Insecurity Answer Date Recorded Food 2 06/21/2024 Transportation Needs Answer Date Record ed Transportation 1 06/21/2024 Housing Stability Answer Date Recorded Housing 2 06/21/2024 Safety and Environment Answer Date Theron rded Safety 0 04/22/2023 Utilities Answer Date Recorded Utilities 1 06/21/2024 Employment Answer Date Recorded Stress 0 02/05/2023 Sex and Gender Information Value Date Recorded Sex Assigned at Male 05/04/2019 7:45 AM PDT Legal Sex Male 10:57 AM PST Gender Identity Male 05/04/2019 7:45 AM PDT Sexual Orientation Don't know 05/04/2019 7: 45 AM PDT 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 Patient admitted 12/03/24 and discharged 12/03/24 from [facility]. New phone number [phone] added to [employer] from [employer]. Reassigned to Evelia LINK and Ynes PACHECO. by Ashley Mo (Nurse Arch Support Maker) on Dec 05, 2024. Last appointment in PCP office on06/21/2024. Next appointment not yet scheduled. documented in this encounter Plan of Treatment Not on file documented as of this encounter Visit Diagnoses Not on filedocumented in this encounter Additional Health Concerns Assessment Noted Time PHQ-9 Depression Total Score: 14 024 3:35 PM PDT documented as of this encounter Care Teams Assistant Manager Trainee Relationship Specialty Start Date End Date Marlena Coronel NP [address] [place] [address] PCP - General Internal Medicine 08/01/22 documented as of this encounter
--- OUTSIDE RECORDS SUMMARY | 2024-12-15 14:53 | XMS_ITS | Encounter Summary ---
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 Patient admitted 12/03/24 and discharged 12/03/24 from [facility]. New phone number [phone] added to [employer] from [employer]. Reassigned to Evelia LINK and Ynes PACHECO. documented in this encounter Plan of Treatment Not on file documented as of this encounter Visit Diagnoses Not on filedocumented in this encounter Additional Health Concerns Assessment Noted Time PHQ-9 Depression Total Score: 14 024 3:35 PM PDT documented as of this encounter Care Teams Glass Mould Cleaner Relationship Specialty Start Date End Date Marlena Coronel NP [facility] [place] [address] PCP - General Internal Medicine 08/01/22 documented as of this encounter
--- OUTSIDE RECORDS SUMMARY | 2024-12-15 14:53 | XMS_ITS | Encounter Summary ---
Author Organization [employer] [facility] Address [address] [place] [address] 7[address] [place] [address] Care Team Providers Care Wholesale Account Manager Name Role Phone Unavailable Primary Care Provider Unavailabl e Reason for Visit * Reason Comments Dentures Patient like to have a new set of denture, upper and lower complete denture Encounter Details Date Type Department Care Team (Late st Contact Info) Description 11/27/2023 3:00 PM EST Office Visit [facility] ADULT DENTAL [address] [place] [address] Arnulfo Love DDS [address] [place] [address] Complete edentulism, unspecified edentulism class (Primary Dx); Atrophy of edentulous maxillary alveolar ridge Social History Tobacco Use Types Packs/Day Years [...] Orientation Straight 11/10/2023 11 :51 AM EST documented as of this encounter Last Filed Vital Signs Vital Sign Reading Time Taken Comments Blood Pressure 130/80 11/27/2023 3:38 PM EST Pulse - - Temperature - - Respiratory Rate - - Oxygen Saturation - - Inhaled Oxygen Concentration - - Weight - - Height - - Body Mass Index - - documented in this encounter Progress Notes * Arnulfo Love DDS - 11/27/2023 3:00 PM EST Dental procedures in this visit D0150 - COMPREHENSIVE ORAL EVALUATION - NEW OR ESTABLISHED PATIENT (Completed) Service provider: Arnulfo Love DDS Billing provider: Arnulfo Love DDS D9450 - CASE PRESENTATION, DETAILED AND EXTENSIVE TREATMENT PLANNING (Completed) Service provider: Arnulfo Love DDS Billing provider: Arnulfo Love DDS D0330 - PANORAMIC RADIOGRAPHIC IMAGE (Completed) Service provider: Arnulfo Love DDS Billing provider: Arnulfo Love DDS Patient ID: Victorino Moncada is a 53 y.o. male. Time Out: Timeout Date: 11/27/23, Timeout Time: 1552 Location: [facility] Tooth: Maxilla and Mandible Procedure: Exam and X-rays Verified the above with patient, service center assistant, and provider. Confirmed via patient's chart, intraorally and by radiographs. Sales And Marketing Intern: not applicable Chief Complaint Patient presents with Dentures Patient like to have a new set of denture, upper and lower complete denture Medical Hx: Vitals: Blood pressure 130/80. History reviewed. No pertinent past medical history. Medications: No outpatient encounter medications on file as of 11/27/2023. No facility-administered encounter medications on file as of 11/27/2023. Objective HPI Asymptomatic. Pt. Wanting to have new dentures . Head and Neck Exam: OCS performed, no lesion no mass noticed. Details: Skin WNL OCS: negative Dental Exam Presents complete edentulism Full dentures fabrication on maxillae and mandibulae. Oral Cancer Risk: Moderate Risk Oral Hygiene Instructions: Lizella Tongue Caries Risk Assessment: N/A Assessment/Plan Fabrication of new dentures depending on Ins. approval. Set of denture's retention prognosis is guarded. On exam today noticed: Removed Mandibular oswaldo region / advised about potential recurrence . Plan for pre Auth . RBA discussed with Victorino, seemed to understand and agrees about difficulties. Also addressed, that requesting specific form, size, shape, and color of artifical teeth sometimes when patient's expectations are not aligned with possibilities or reality it may bring dissatisfaction. Patient tolerated procedure well, all questions answered and expressed understanding. Dismissed in good condition. NV: Imp. ? Radio Host: Shantell Corbett Dentist: Arnulfo Love DDS documented in this encounter Plan of Treatment Scheduled Orders Name Type Priority Associated Diagnoses Orde r Schedule Max Max COMPLETE DENTURE - MAXILLARY Dental Routine [address] arting 11/27/2023 Blair Blair COMPLETE DENTURE - MANDIBULAR Dental Routine 1 Occurrenc es starting 11/27/2023 DENTURE IMPRESSION Dental Routine 1 Occu rrences starting 11/27/2023 DENTURE IMPRESSION Dental Routine 1 Occu rrences starting 11/27/2023 BITE REGISTRATION Dental Routine 1 Occur rences starting 11/27/2023 WAX TRY IN Dental Routine 1 Occurrences starting 11/27/2023 documented as of this encounter Procedures Procedure Name Priority Date/Time Associated Diagnosis Comments PANORAMIC RADIOGRAPHIC IMAGE Routine 11/27/2023 3:00 PM EST COMPREHENSIVE ORAL EVALUATION - NEW OR ESTABLISHED PATIENT Routine 11/27/2023 3:00 PM EST CASE PRESENTATION, DETAILED AND EXTENSIVE TREATMENT PLANNING Routine 11/27/2023 3:00 PM EST documented in this encounter Visit Diagnoses Diagnosis Complete edentulism, unspecified edentulism class- Primary Atrophy of edentulous maxillary alveolar ridge Unspecified atrophy of edentulous alveolar ridge documented in this encounter
--- OUTSIDE RECORDS SUMMARY | 2024-12-15 14:53 | XMS_ITS | Encounter Summary ---
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 History significant for opioid use disorder, cocaine use disorder, drug abuse, alcohol abuse, vitamin D deficiency, depression, chronic Hep C, osteomyelitis, GERD, and cellulitis. Specialists include pending referral. ED visits within the last 12 months include 12/03/2024 with chest pain. Last appointment in PCP office on 06/21/2024. Next appointment not yet scheduled. documented in this encounter Plan of Treatment Not on file documented as of this encounter Visit Diagnoses Not on filedocumented in this encounter Additional Health Concerns Assessment Noted Time PHQ-9 Depression Total Score: 14 024 3:35 PM PDT documented as of this encounter Care Teams Brakes Inspector Relationship Specialty Start Date End Date Marlena Coronel NP [address] [place] [address] PCP - General Internal Medicine 08/01/22 documented as of this encounter
--- OUTSIDE RECORDS SUMMARY | 2024-12-15 14:53 | XMS_ITS | Encounter Summary ---
Author Organization [facility] Address [address] [place] [address] Care Team Providers Care Wildfire Prevention Specialist Name Role Phone Marlena Coronel NP Primary Care Provider [phone] Encounter Details Date Type Department Care Team (Late st Contact Info) Description 12/19/2022 Interim Notes [facility] [place] [address] [place] [phone] Vamshi Nguyen [address] [place] [address] Social History Tobacco Use Types Packs/Day Years Used Date Smoking Tobacco: Every Day Cigarettes 1 27 Smokeless Tobacco: Never Alcohol Use Standard Drinks/Week Comments No 0 (1 standard drink = 0.6 oz pur e alcohol) Social Connections Answer Date Recorded Social Connections and Isolation 0 06/26/2019 Financial Resource Strain Answer Date R ecorded Financial Resource Strain 0 2018 Stress Answer Date Recorded Stress 0 06/26/2019 Physical Activity Answer Date Recorded Physical Activity 0 06/26/2019 Food Insecurity Answer Date Recorded Food 0 06/26/2019 Transportation Needs Answer Date Record ed Transportation 0 06/26/2019 Housing Stability Answer Date Recorded Housing 0 06/26/2019 Safety and Environment Answer Date Theron rded Safety 0 06/26/2019 Utilities Answer Date Recorded Utilities 0 06/26/2019 Employment Answer Date Recorded Employment 0 06/26/2019 Sex and Gender Information Value Date Recorded Sex Assigned at Male 05/04/2019 7:45 AM PDT Legal Sex Male 10:57 AM PST Gender Identity Male 05/04/2019 7:45 AM PDT Sexual Orientation Don't know 05/04/2019 7: 45 AM PDT 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
--- OUTSIDE RECORDS SUMMARY | 2024-12-15 14:53 | XMS_ITS | Encounter Summary ---
Author Organization [employer] [facility] Address [address] [place] [address] Care Team Providers Care Oil Spreader Operator Name Role Phone Unavailable Primary Care Provider Unavailabl e Encounter Details Date Type Department Care Team (Late st Contact Info) Description 12/14/2023 Abstract [facility] ADULT D[facility]AL [address] [place], [place] [phone] Arnulfo Love DDS [address] [place], [place] [phone] Social History Tobacco Use Types Packs/Day Years Used Date Smoking Tobacco: Former Cigarettes Smokeless Tobacco: Current Alcohol Use Standard Drinks/Week Comments Not Currently 0 (1 standard drink = 0.6 oz pur e alcohol) Sex and Gender Information Value Date Recorded Sex Assigned at Male 11/10/2023 11:51 AM EST Legal Sex Male 10:55 AM EDT Gender Identity Male 11/10/2023 11:51 AM EST Sexual Orientation Straight 11/10/2023 11 :51 AM EST documented as of this encounter Plan of Treatment Not on file documented as of this encounter Visit Diagnoses Not on filedocumented in this encounter
--- OUTSIDE RECORDS SUMMARY | 2024-12-15 14:53 | XMS_ITS | Clinical Summary ---
Author Organization [facility] Address [address] [place] [address] Care Team Providers Care Construction Producer Name Role Phone Marlena Coronel NP Primary Care Provider Source Comments PLEASE NOTE, if this patient is a minor, it may be UNLAWFUL to discuss sensitive information that is contained in these records (such as FAMILY PLANNING, MENTAL HEALTH or SUBSTANCE ABUSE) with the minor patient's parent or other person without the patient's specific authorization.[facility] Allergies No known active allergies Medications No known medications Active Problems Problem Noted Date Diagnosed Date Depression 06/21/2024 Cellulitis of upper extremity 04/28/2023 Overview (07/02/2023): : seen in ED for injection of heroin into open wounds again. He was sent home with abx 03/16/23: seen dr benavidez, c/w TAC 0.1% topical cream, decrease to QD PRN flares, avoid picking wounds. rest examined lesions benign and no treatment warranted. F/U in 2 months Opioid use disorder, moderat e, in early remission, on maintenance therapy ([facility]) 03/09/2020 Cocaine use disorder, modera te, in early remission ([facility]) 03/09/2020 Vitamin D deficiency 02/01/2016 Gastroesophageal reflux disease without esophagi tis 11/29/2015 Chronic hepatitis C ([facility]) 11/12/2015 Osteomyelitis ([facility]) 11/12/2015 Overview (11/12/2015): hand Drug abuse ([facility]) 11/12/2015 Overview (02/05/2023): 02/05/23: reports 39 days clean. Reports some improvement of hands. Drug of choice was heroin, used IV. Tobacco abuse 11/12/2015 Alcohol abuse 11/12/2015 Encounters Date Type Department Care Team Description 12/09/2024 Interim Notes [address] [phone] CapYnes winn 12/05/2024 Interim Notes [address] [phone] Evelia Reich RN 12/05/2024 Interim Notes [address] [phone] Ashley Mo from Last 3 Months Immunizations Name Administration Dates Next Due Flu, Preservative Free 10/30/2021 Hep B, Adult/Adol (ENERGIX/RECOMBIVAX) 7 RENZO COVID-19 VACCINE 06/05/2021 Moderna COVID-19 Vaccine, re d cap blue label, 12+ Primary Series 10/30/2021 TDAP 01/31/2016 Td(adult),2 Lf tetanus toxoid,preservative free 04/27/2019 Family History Medical History Relation Name Comments Alcohol/Drug Abuse Father cirrhosis of liver- in his [id number]/early 70s Cancer Mother pancreatic canc er- at age 66 Relation Name Status Comments Father Mother Social History Tobacco Use Types Packs/Day Years [...] 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 on file Not on fi le Last Filed Vital Signs Vital Sign Reading Time Taken Comments Blood Pressure 110/72 06/21/2024 3:38 PM EDT Pulse 82 06/21/2024 3:38 PM EDT Temperature 36.9 ??C (98.5 ??F) 06/21/2024 3:38 PM ED T Respiratory Rate 18 06/21/2024 3:38 PM EDT Oxygen Saturation 96% 06/21/2024 3:38 PM EDT Inhaled Oxygen Concentration - - Weight 75.8 kg (167 lb) 06/21/2024 3:38 PM EDT Height 180.3 cm (5' 11 ) 06/21/2024 3:38 PM EDT Body Mass Index 23.29 06/21/2024 3:38 PM EDT Plan of Treatment Health Maintenance Due Date Last Done Comments Imm-Pneumococcal (1 of 2 - PCV) 1991 Imm-Hepatitis B (2 of 3 - 19+ 3-dose series) 03/16/2017 02/16/2017 CT Colonography 2017 Colonoscopy 2017 Colorectal Cancer Screening 2017 FIT/gFOBT 2017 Fecal DNA 2017 Flexible Sigmoidoscopy 2017 Annual Preventive Care Visit 02/16/2018 02/16/2017, 01/31/2016 Diabetes Screening 05/03/2020 05/03/2019, 0 05/03/2019, 01/31/2016, Additional history exists HIV Screening 05/12/2020 05/12/2019 Syphilis Screening 05/12/2020 05/12/2019 Lipid Screening 01/30/2021 01/31/2016 Imm-Zoster, Recombinant (1 of 2) 2022 [id number] ( season) 2024 10/30/2021, 06/05/2021 Imm-Influenza (#1) 2024 10/27/2022, 10/30/2021 Tobacco Cessation Counseling (#1) 08/03/2024 02/05/2023 Depression Monitoring 09/21/2024 06/21/2024 , 04/22/2023, 02/05/2023 Alcohol and Drug Screen 11/02/2024 06/21/20 24, 11/29/2015, 11/29/2015 Hypertension Screening (#1) 06/21/2025 Imm-Hepatitis A (1 of 2 - Risk 2-dose series) 06/21/2025 Postponed from 1991 (Patient postponement) Imm-DTaP/Tdap/Td (3 - Td or Tdap) 04/27/2029 04/27/2019, 01/31/2016 Hepatitis B Screening Completed 01/31/2016 Procedures Procedure Name Priority Date/Time Associated Diagnosis Comments ANTIBODY HIV-1&HIV-2 SINGLE RESULT Routine 05/12/2019 11:36 AM EDT Drug abuse ([facility]) FTA-ABS, SERUM Routine 05/12/2019 11:36 AM EDT Chronic hepatitis C without hepatic coma (HCC-CMS) HEMOGLOBIN GLYCOSYLATED A1C Routine 05/03/2019 4:21 PM EDT Encounter for medical examination to establish care HEPATITIS A,B,C PANEL Routine 01/31/2016 4:25 PM EDT Routine physical examination LIPID PANEL Routine 01/31/2016 4:25 PM EDT Routine physical examination from Last 3 Months or Most Recently Relevant to Health Maintenance Results * FTA-ABS, SERUM (05/12/2019 11:36 AM EDT) TREPONEMAL AB NEGATIVE NEGATIVE [facility] 05/12/2019 11:3 6 AM EDT 05/12/2019 11:40 AM EDT Narrative [facility] 05/12/2019 4:19 PM EDT [address] [employer], [place] [address] [employer] Stringer - Terri Anderson MD PT ID [id number] ORD# [id number] Mohit Mcginnis NP LAB - BLOOD DRAW Final Result Performing Organization Address City/[facility]/ZIP Co de Phone Number [address] [address], * HIV-1 & HIV-2 ANTIBODIES (05/12/2019 11:36 AM EDT) [facility] HIV 1 AND 2 ANTIBODY SCREEN NEGATIVE NEGATIVE [facility] Comment: This assay is a 4th generation assay allowing for earlier detection of HIV infection by detecting the presence of the HIV-1 p24 antigen as well as the traditional antibodies to HIV type 1 (including group O) and type 2. ??Use of a 4th generation assay is the current CDC recommendation for HIV screening. Blood specimen (specimen) Blood / Unknown 05/12/2019 11:36 AM EDT 05/12/2019 11:40 AM EDT [facility] - 05/12/2019 4:46 PM EDT [address] [address] [employer] Stringer - Terri Anderson MD PT ID [id number] ORD# [id number] Mohit Mcginnis NP LAB - BLOOD DRAW Final Result Performing Organization Address [facility]/ZIP Co de Phone Number [address] [address], * HEMOGLOBIN, GLYCOSYLATED (A1C) (05/03/2019 4:21 PM EDT) [facility] GLYCATED HEMOGLOBIN A1C 6.1 <6.5 % [facility] ESTIMATED AVERAGE GLUCOSE 128 mg/dL [facility] Blood specimen (specimen) Blood / Unknown 05/03/2019 4:21 PM EDT 05/03/2019 8:31 PM EDT [facility] - 05/03/2019 9:23 PM EDT [employer], a member of [address] [address] [employer] - Terri Anderson MD [place] ID [id number] ORD# [id number] Mohit Mcginnis NP LAB - BLOOD DRAW Final Result Performing Organization Address [facility]/ZIP Co de Phone Number [address] [address], * (ABNORMAL) HEPATITIS A,B,C PANEL (01/31/2016 4:25 PM EDT) HEPATITIS B SURFACE ANTIBODY NEGATIVE NEGATIVE [facility] HEPATITIS B SURFACE ANTIGEN NEGATIVE NEGATIVE [facility] HEPATITIS C VIRUS DIAGNOSTIC POSITIVE(A) NEGATIVE [facility] Comment: If confirmation of this positive HCV Ab screening test is needed, please redraw and order HCV Viral Load. ??Note--> This test may not be added on due to different specimen requirements. HEPATITIS B CORE ANTIBODY POSITIVE(A) NEGATIVE [facility] HEPATITIS A ANTIBODY TOTAL POSITIVE(A) NEGATIVE [facility] Blood specimen (specimen) Blood / Unknown 01/31/2016 4:25 PM EDT 01/31/2016 4:35 PM EDT Narrative [facility] - 01/31/2016 6:41 PM EDT [address] [place] [address] PT ID [id number] ORD# [id number] Shelli RODRIGUEZP LAB - BLOOD DRAW Edited Resu lt - Final Performing Organization Address City/[facility]/ZIP Co de Phone Number [address] [address], * (ABNORMAL) LIPID PANEL (01/31/2016 4:25 PM EDT) CHOLESTEROL 170 0 - 200 mg/dL [facility] TRIGLYCERIDES 182(H) 0 - 150 mg/dL [facility] HDL CHOLESTEROL 54 >40 mg/dL [facility] LDL CALCULATED 80 0 - 100 mg/dL [facility] TC-HDLC RATIO 3.2 0 - 4.4 mg/dL [facility] Blood specimen (specimen) Blood / Unknown 01/31/2016 4:25 PM EDT 01/31/2016 4:35 PM EDT Narrative [facility] - 01/31/2016 6:13 PM EDT [facility] [employer] [address] [place] [address] PT ID [id number] ORD# [id number] Shelli Carson HEALTH NURSE LAB - BLOOD DRAW Final Resul t [facility] [address] [place] [address], [place] [phone] from Last 3 Months or Most Recently Relevant to Health Maintenance Insurance [facility] [place] MEDICAID DENTAL [address] [facility] Medicaid Address: [address] [place] [address] Care Teams Construction Producer Relationship Specialty Start Date End Date Marlena Coronel NP [facility] [place] [address] PCP - General Internal Medicine 08/01/22
== END 2024-12-15 14:56 | disposition left against medical advice (07) ==
LOC: HO.ED 14:49
PROVIDERS: Emergency Provider Emergency Medicine
DX: F11.10 Opioid abuse, uncomplicated (principal)